=== PATIENT | male | born 2000 | race Caucasian/White ===

== ENCOUNTER 2025-08-16 18:14 | Inpatient (IN) | payer MEDICAID, OTHER, SELFPAY ==
--- NOTE | ~2025-08-16 | US_ITS ---
CLINICAL HISTORY: History of basilc and cephalic vein thrombosis Venous duplex ultrasound left upper extremity Comparison: None provided Findings: Accessible deep venous segments are fully compressible with normal Doppler color flow and spectral tracings. IMPRESSION: 1. Negative for left upper extremity deep vein thrombosis. This document has been electronically signed by: Tj Pryor MD on 08/18/2025 19:16:47
--- NOTE | ~2025-08-16 | XR_ITS ---
CLINICAL HISTORY: shoulder pain 3 views right shoulder Comparison: None Findings: There is a small fracture involving the greater tuberosity of the humerus. No other fracture or dislocation.. No significant arthritic change. No radiopaque foreign body. Normal visualized right chest. Impression: 1. Small fracture of the greater tuberosity of the humerus. No other fracture or dislocation. This document has been electronically signed by: Cruz Prasad MD on 08/16/2025 20:38:48
[2025-08-16 18:24] VITALS: BP 120/80; BP 155/82; PULSE 100; PULSE 140; RESP 22; TEMP 36.8; O2SAT 99; BMI 23.4
[2025-08-16 18:45] VITALS: RESP 14
--- NOTE | 2025-08-16 18:48 | PC.NURSE ---
Igor (they/them) presents to the ED today reporting suicidal ideation with a plan to jump in front of a train due to increasing life stressors. They report to this RN that they also struggle with substance abuse (specifically alcohol). Pt reports drink 2 liters of vodka daily and has a history of DTs. Pt reports last drink was earlier today. Upon arrival to the pod, pt is extremely tearful, on phone with friend, when tech brought patient into bathroom, pt attempted to take a hit off their vape . Vape was grabbed by tech Pattie, in the process of grabbing the vape, pts acrylic nail was accidentally knocked off of patient's hand. No injury noted by this RN. This RN then entered room to assist in changing patient with JOHN Blankenship. Pt changed over and visibly inspected by this RN during process. Pt was then escorted to their room and in the process of walking over to their room stated I feel faint . JOHN Blankenship and Officer Tash assisted patient to their bed. Pt endorses frequent dizzy spells, endorses lack of appetite. Pt also reports having a right arm fracture that was diagnosed at [facility] three weeks ago but never follow up on
--- NOTE | 2025-08-16 18:51 | MHC.EDTECH ---
This tech escorted patient to bathroom for changeover. Patient stated they needed to pee, I explained I needed to be present during changeover, but if they would like to change first I could step out and give them privacy to use the bathroom. Patient stated that I really just need to hit my vape one more time. I stated no, patient kept proceeding to say please over and over again. Patient pulled vape from pocket and attempted to use it. This tech pulled vape from patients hand/mouth and while taking vape pulled patients false nail off finger. Vape with security, and RN made aware to look at patients finger. RN assisted with the rest of changeover, which was uneventful.
--- NOTE | 2025-08-16 18:56 | MHC.EDTECH ---
Patient has surgically placed rings in ears that are unable to be removed. Also states surgically placed septum jewely which is unable to be removed. Additionally patient has two nostril rings, one lip ring and a penile ring. RN aware of all jewelry on body.
[2025-08-16 19:20] LABS: MANUAL DIFF FLAG NO
[2025-08-16 19:33] LABS: Alanine Aminotransferase 126 U/L (0-40); Albumin Level 4.0 g/dL (3.5-5.0); Alkaline Phosphatase 88 U/L (39-117); Anion Gap 19 (12-20); Aspartate Amino Transferase 137 U/L (5-37); Blood Urea Nitrogen 8 mg/dL (9-16); Calcium 8.2 mg/dL (8.4-10.2); Carbon Dioxide 19 mmol/L (22-29); Chloride 110 mmol/L (96-108); Creatinine Clr Calc Pharmacy 101.1; Estimated Glomerular Filt Rate > 60; Potassium 3.4 mmol/L (3.3-5.1); Sodium 145 mmol/L (135-145); Total Protein 6.2 g/dL (6.5-8.0)
--- NOTE | 2025-08-16 19:34 | ED_ITS ---
HPI - Psych General Chief Complaint: Psychiatric Symptoms Stated Complaint: SI, psychiatric/substance abuse issues, Time Seen by Provider: 08/16/25 19:18 History of Present Illness HPI Narrative: Patient is a 25-year-old person preferred pronoun the stay the presented today with having suicidal thoughts. Patient had thoughts about jumping onto the train track. They drank alcohol. Question using drugs. Denies any head injury. Question took an extra dose of Xarelto. Patient from home. No additional trauma Related Data Home Medications ?Medication ?Instructions ?Recorded ?Confirmed clonazepam 1 mg tablet 1 mg PO DAILY 08/16/2508/16 clonazepam 2 mg tablet 2 mg PO NEEDED PRN Anxiet y 08/16/25 08/16/25 finasteride 5 mg tablet 1.25 mg PO DAILY 08/16/25 minoxidil 2.5 mg tablet 1.25 mg PO DAILY 08/16/25 Allergies Allergy/AdvReac Type Severity Reaction Status Date / Time Opioids - Morphine Analogues Allergy Unknown Verified 08/16/25 18:43 Penicillins Allergy Unknown Verified 08/16/25 18:43 Review of Systems 2 Review of Systems: Positive suicidal ideation Yes all other systems are reviewed and are negative [facility], [facility] Past Medical History Attestation statement: The following information was validated with the patient. Social History Social History Alcohol intake: current Alcohol intake frequency: 3 or more drinks per day Smoked in Last 30 Days: Yes Use of substances other than those prescribed or required for medical reasons: No Advance Directives: No Advance Directives Information Provided: No Physical Exam 2 Exam: Exam: Appearance: Alert. Oriented X3. No acute distress. Eyes: Pupils equal, round and reactive to light. ENT: Pharynx normal. Neck: Normal inspection. Neck supple. No lymph nodes noted. No crepitus CVS: Normal heart rate and rhythm. Pulses normal. Normal S1 and S2 Respiratory: No respiratory distress. Breath sounds normal. No Wheezing. No rales Abdomen: Soft and nontender. No rigidity. No distention. good BS x4 Skin: Skin warm and dry. Normal skin color. Normal skin turgor. Extremities: No lower extremity edema. Neurovascular intact to all extremities. No Lacerations. No Rash Neuro: Oriented X 3. No motor deficit. No sensory deficit. Moving all extermities. No slurred speech. Cranial nerves grossly intact Vital Signs: Vital Signs: Last Vital Signs Temp 97.7 F 08/17/25 08:49 Pulse 70 08/17/25 08:49 Resp 20 08/17/25 08:49 BP 142/70 H 08/17/25 08:49 Pulse Ox 97 08/17/25 08:49 O2 Del Method Room Air 08/17/25 08:49 BMI result Body Mass Index 23.4 Course Reevaluation(s) Reevaluation #1: Time: 05:13 Date: 08/17/25 Provider: David Watt MD Patient in physician observation for psychiatric evaluation.? Laboratory evaluation revealed elevated AST and ALT consistent with his alcohol use disorder. Ethanol level was elevated at 249. Urine tox screen pending collection. No acute events reported overnight. No current complaints. VS stable.? Pending CARE team evaluation. Will continue to monitor. Medications Administered Generic Name Dose Route Start Last Admin Trade Name Freq PRN Reason Stop Dose Admin Clonazepam 1 mg 08/17/25 09:00 08/17/25 10:03 Clonazepam 1 Mg Tablet PO 1 mg DAILY CANDY Administration Nicotine Polacrilex 2 mg 08/16/25 21:46 08/17/25 10:03 Nicotine Polacrilex 2 Mg Gum BUCCAL 2 mg Q1H PRN Administration Nicotine Cravings Discontinued Medications Generic Name Dose Route Start Last Admin Trade Name Freq PRN Reason Stop Dose Admin Clonazepam 2 mg 08/17/25 08:18 08/17/25 08:24 Clonazepam 1 Mg Tablet PO 08/17/25 08:19 2 mg ONCE STA Administration Diphenhydramine HCl 50 mg 08/17/25 00:28 08/17/25 00:32 Diphenhydramine Hcl 25 Mg Capsule PO 08/17/25 00:29 50 mg ONCE ONE Administration Ondansetron HCl 4 mg 08/17/25 08:18 08/17/25 08:23 Ondansetron Odt 4 Mg Tab.Rapdis TRANSLINGU 08/17/25 08:19 4 mg ONCE STA Administration Medical Decision Making Medical Decision Making MDM Narrative: No acute distress positive pain to the right shoulder. Labs ordered crisis team consulted. Reports of alcohol use today. Lab Data 08/16/25 19:13 08/16/25 19:13 Labs: Lab Results 08/16/25 08/16/25 08/17/25 Range/Units 19:13 22:57 06:15 WBC 4.8 (4.8-10.8) X10*3/uL RBC 5.13 (4.60-5.80) X10*6/uL Hgb 14.8 (14.0-18.0) g/dl Hct 42.0 (42.0-52.0) % MCV 81.9 (80.0-98.0) fL MCH 28.8 (27.0-33.0) pg MCHC 35.2 (31.0-36.0) g/dl RDW 15.4 (11.0-16.0) % Plt Count 163 (160-400) X10*3/uL MPV 12.1 (9.4-12.4) fL Immature Gran % (Auto) 0.2 (0.0-0.4) % Neut % (Auto) 58.2 (45-73) % Lymph % (Auto) 36.0 (20-40) % [place] % (Auto) 4.6 (2-11) % Eos % (Auto) 0.4 (0-4) % Baso % (Auto) 0.6 (0-2) % Lymph # (Auto) 1.7 (1.2-4.9) X10*3/uL [place] # (Auto) 0.2 (0.1-1.2) X10*3/uL Eos # (Auto) 0.0 (0.0-0.4) X10*3/uL Baso # (Auto) 0.0 (0.0-0.2) X10*3/uL Abs Immat Gran (auto) 0.01 (0.00-0.03) X10*3/uL Absolute Neuts (auto) 2.8 (2.0-8.3) x10*3/uL Absolute Nucleated RBC 0.000 (0.0-0.012) X10*3/uL Nucleated RBC % (auto) 0.0 (0.0-0.2) /100WBC PT 10.4 L (11.2-13.5) SEC INR 0.8 L (0.9-1.1) Sodium 145 (135-145) mmol/L Potassium 3.4 (3.3-5.1) mmol/L Chloride 110 H (96-108) mmol/L Carbon Dioxide 19 L (22-29) mmol/L Anion Gap 19 (12-20) BUN 8 L (9-16) mg/dL Creatinine 0.99 (0.5-1.4) mg/dL Estim Creat Clear Calc 101.1 Estimated GFR > 60 Random Glucose 139 H (60-115) mg/dL Calcium 8.2 L (8.4-10.2) mg/dL Total Bilirubin 0.5 (0.0-1.0) mg/dL AST 137 H (5-37) U/L ALT 126 H (0-40) U/L Alkaline Phosphatase 88 (39-117) U/L Total Protein 6.2 L (6.5-8.0) g/dL Albumin 4.0 (3.5-5.0) g/dL Urine Color Yellow Urine Appearance Clear Urine pH 6.5 (5.0-9.0) Ur Specific [place] 1.025 (1.005-1.025) Urine Protein Trace (Neg-Trace) mg/dL Urine Glucose (UA) Negative (Negative) mg/dL Urine Ketones Trace (Negative) mg/dL Urine Blood Negative (Negative) Urine Nitrite Negative (Negative) Ur Leukocyte Esterase Moderate (2+) H (Negative) Urine RBC 3-5 H (0-2) /HPF Urine WBC 6-10 (0-5) /HPF Ur Squamous Epith Cells 0-2 (0-2) /HPF Urine Bacteria None Seen (None Seen) Hyaline Casts 0-2 (0-2) /LPF Salicylates < 5.0 L (15-30) mg/dL Urine Opiates Screen Not Detected (Not Detect) Ur Buprenorphine Scrn Not Detected (Not Detect) ng/mL Ur Oxycodone Screen Not Detected (Not Detect) ng/mL Urine Methadone Screen Not Detected (Not Detect) ng/mL Urine Fentanyl Screen Not Detected (Not Detect) Acetaminophen < 3 (<30) mcg/mL Ur Barbiturates Screen POSITIVE H (Not Detect) Ur Phencyclidine Scrn Not Detected (Not Detect) Ur Amphetamines Screen Not Detected (Not Detect) U Benzodiazepines Scrn Not Detected (Not Detect) Urine Cocaine Screen Not Detected (Not Detect) U Marijuana (THC) Screen Not Detected (Not Detect) Ethyl Alcohol 294 mg/dL Discharge Plan Discharge Prescriptions: No Action clonazepam 1 mg Tablet 1 mg PO DAILY minoxidil 2.5 mg tablet 1.25 mg PO DAILY clonazepam 2 mg Tablet 2 mg PO NEEDED PRN (Reason: Anxiety) finasteride 5 mg tablet 1.25 mg PO DAILY Interventions: [place]-Suicide Risk Severity Scale Last Done: 08/16/25 18:46 Print Language: Greenlandic
[2025-08-16 20:17] LABS: Hematocrit 42.0 % (42.0-52.0); Hemoglobin 14.8 g/dl (14.0-18.0); Imm Gran Abs Auto 0.01 X10*3/uL (0.00-0.03); Imm Gran Pct Auto 0.2 % (0.0-0.4); Lymphocytes Absolute Auto 1.7 X10*3/uL (1.2-4.9); Mean Corpuscular HGB Conc 35.2 g/dl (31.0-36.0); Mean Corpuscular Hemoglobin 28.8 pg (27.0-33.0); Mean Corpuscular Volume 81.9 fL (80.0-98.0); NRBC Abs Auto 0.000 X10*3/uL (0.0-0.012); NRBC Pct Auto 0.0 /100WBC (0.0-0.2); Platelet Count 163 X10*3/uL (160-400); Red Blood Count 5.13 X10*6/uL (4.60-5.80); White Blood Count 4.8 X10*3/uL (4.8-10.8)
[2025-08-16 20:34] VITALS: BP 116/69; PULSE 92; RESP 18; TEMP 37.1; O2SAT 98
--- NOTE | 2025-08-16 22:53 | PC.NURSE ---
Assumed care at 1845. Presents with labile mood, alternating between crying and laughing. Told t/w Can you please make sure they don't discharge me tomorrow morning. I'll go back to the liquor store. I want to see a gymnastics coach. No HS scheduled medications. Utilized Nicorette gum x2. C/o pain to R shoulder and reports they suffered a fracture 3 weeks ago, but did not seek follow-up care. Abdullahi made aware, order for R Shoulder XRAY obtained. Reports they drink 2L of vodka daily (last this AM) and hx of WD SZ/DT's. Last CIWA score of 5, Abdullahi made aware. Endorses +SI no plan. Denies HI/AVH. Agreeable to alert staff if feeling unsafe. No c/o dizziness. Requesting large amounts of icewater. UA collection attempted/requested multiple times, will retry in AM. Med req completed per patient information. 15 minute safety checks ongoing. Plan of care ongoing...
[2025-08-17 00:17] VITALS: BP 136/78; PULSE 64; RESP 16; TEMP 37.1; O2SAT 98
--- NOTE | 2025-08-17 00:39 | PC.NURSE ---
Igor approached nurses station asking for food/water, reports he hasn't eaten in days. Provided cold water/sandwiches. Utilized PRN Nicorette gum. Igor requested a medication for Alcohol Withdrawal and stated Ativan does not work and I love benzos. I want Phenobarbital, it's the only thing that works. VS WNL. CIWA score of 6. MD Lozano made aware of patient concern/status, order for 50mg PO Benadryl obtained/administered. Mouth checks completed. Will continue to monitor for safety/WD sx.
[2025-08-17 06:00] VITALS: BP 148/79; PULSE 60; RESP 17; TEMP 36.7; O2SAT 99
[2025-08-17 06:22] LABS: Appearance Urine Clear; Glucose Urine UA Negative (Negative); PH 6.5 (5.0-9.0); Specific Gravity - Urine 1.025 (1.005-1.025); UMIC TRIGGER UACC YES
[2025-08-17 06:29] LABS: UACC Culture Trigger YES
[2025-08-17 06:32] LABS: Cannabinoid Screen Urine Not Detected (Not Detect)
--- NOTE | 2025-08-17 07:16 | PC.NURSE ---
Assumed care, report received. Pt is currently sleeping, breakfast is provided.
[2025-08-17 08:49] VITALS: BP 142/70; PULSE 70; RESP 20; TEMP 36.5; O2SAT 97
--- NOTE | 2025-08-17 08:53 | MHC.CARE ---
Pt will be a dual dx bedsearch, if we cannot find a timely placement for them on a dual unit it has been recommended that we take them here and have [facility].
--- NOTE | 2025-08-17 09:45 | PC.NURSE ---
Pt woke with significant nausea. tremors, weakness and AH. CIWA-18 he was medicated and is currently sleeping. HR-70 BP 147/70
--- NOTE | 2025-08-17 10:30 | PHA.MEDREC ---
Pharmacy Consult ? Medication Reconciliation Pharmacy has completed the medication reconciliation. Med rec completed by nursing who spoke to patient. Reviewed by pharmacy
[2025-08-17 15:50] VITALS: BMI 26.2
[2025-08-17] MEDS: Nicotine Polacrilex Lozenge 4 MG LOZENGE BUCCAL ×4 (16:05→21:57)
--- NOTE | 2025-08-17 17:46 | PC.ADMIT ---
Addendum entered by Macy Otero RN 08/17/25 17:49: Pt signed a 3 day notice shortly after arrival to the unit. Accepting of NRT (lozenges and patch) as they vape nicotine daily. Of note per ED nurse report, vape found on pt and confiscated. They decline lease attendant visit, declines Flu vaccine, and is requesting a visit from Addiction medicine/seeking a assistant track coach. Original Note: Pt arrived from the pod at 1450 with admitting dx of SI/Alcohol withdrawal. Igor uses they/them pronouns and identifies as non binary. They signed a CV with Dr Horton in the ED.They are unknown to the CARE team but report multiple psych admissions and . Pt is chronically homeless and recently was [facility] from [facility]. They have been having increasing depression due to ongoing substance abuse, recent heroin relapse, and homelessness. Per CARE team notes they recently were at [facility] for 3 weeks for a blood infection and fractured right arm. Igor has a hx of trauma, depression, SIB, SA by overdose in the past, substance use disorder with? hx of alcohol withdrawal seizures- admits to drinking 2 liters of vodka daily. In ED urine tox positive for barbiturates and BAL 294. They report being at [facility] detox program for 5 days in January and were recently at [facility] for detox. They appeared disheveled and unkept, skin check significant for superficial lacerations to right arm and limited ROM to RUE due to humerus fx. They signed a CV with Dr Horton, placed on 15 min safety checks, admission paperwork completed and SAMMY signed. They denied SI/HI/AVH and reported high anxiety/agitation. Igor was visibly tremulous, diaphoretic, and highly anxious upon arrival to . They scored 22 on CIWA and were medicated with Ativan 2 mg po and then obtained order for phenobarbital taper and started? with Phenobarbital 60 mg. They continued to ask for prn klonopin for anxiety and reported that they ?have a very high tolerance to everything? and went on to state that at detox they gave them 700 mg of phenobarbital. Igor was much more comfortable and less tremulous, anxious and ate a snack and had dinner, reporting a good appetite. Igor was? placed on 15 min safety checks, on CIWA q4 hrs ,admission paperwork completed and SAMMY signed.Social with select peers and reported that ?they cannot be alone with men.? They are currently rooming with a patient who was born female but identifies as they/them. They were oriented to the unit and belongings inventoried.?
[2025-08-17 20:00] VITALS: BP 140/90; PULSE 69; RESP 16; TEMP 36; O2SAT 96
[2025-08-18] MEDS: Nicotine Polacrilex Lozenge 4 MG LOZENGE BUCCAL ×8 (00:08→22:53)
--- NOTE | 2025-08-18 01:47 | PC.NURSE ---
Patient signed a 3 day notice 08/17/25, up on , 08/21/25. Erika Moses notified.
[2025-08-18 08:00] VITALS: BP 137/89; PULSE 68; RESP 20; TEMP 36.3; O2SAT 98
[2025-08-18 08:46] VITALS: BP 137/89; PULSE 68; RESP 20; TEMP 36.3; O2SAT 98
[2025-08-18] MEDS: Nicotine 21 MG PATCH.TD24 TRANSDERMA (08:50)
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
[2025-08-18 12:52] VITALS: BP 155/93; PULSE 93; O2SAT 98
--- NOTE | 2025-08-18 14:21 | MHC.RECOVRN ---
Addendum entered by Ashley Carrion RN 08/18/25 14:24: Pt's withdrawals are being treated with phenobarbital. Original Note: Attempted to meet w/ pt ~13:00 - pt requested that this RN comes back later. Pt at the time was severely anxious and a little tremulous. Pt is on CIWA protocol. Will attempt to meet with pt again shortly.
[2025-08-18] MEDS: PHENobarbitaL sodium 130 MG/ML IM ONCE 204 MG IM (15:26)
--- NOTE | 2025-08-18 16:32 | HO.PM.IMCN ---
History of Present Illness Data of Consult Service Date: 08/18/25 Primary Care Provider: Unknown Physician HPI Reason for consult: Medical H&P 25-year-old male who uses they them pronouns with a past medical history of general anxiety disorder, bacteremia due to Staph aureus, superficial thrombophlebitis of his arm, heavy alcohol use disorder, fracture of the right humerus, thrombocytopenia, history of DTs presented to the emergency department here at [facility]. Patient was recently discharged from [facility] with delirium tremens, superficial venous thrombosis in MSSA bacteremia. Patient was diagnosed with a left upper extremity basilic and cephalic vein thrombosis and was discharged with rivaroxaban 10 mg at supper for 42 days and did not take this upon discharge. Patient also diagnosed with bacteremia, they received 2 g of cefazolin for 14 days and then was scheduled to complete 1 g of cephalexin every 6 hours for 15 more days with a follow up with ID. Patient also noted to have a fracture of right humerus that was sustained in a fall. Not wearing a sling because they report that it is uncomfortable. Patient with a history of thrombocytopenia, cyanocobalamin ordered p.o. methylmalonic acid level elevated. On exam they gave her clear picture of recent hospitalization. Reports that they do not feel well vague and nonspecific. Eating chips, no nausea or vomiting. No tachycardia. No hypoxia. Prior to presentation to the ER patient has been staying at [facility] medical respite due to blood infection and fractured arm. On exam reports that they do not feel well vague and nonspecific. Tremor noted Review of Systems Review of Systems: Denies any shortness of breath, chest pain, palpitations, dizziness, lightheadedness, headaches, dysuria, abdominal pain or discomfort, nausea, vomiting or diarrhea. Denies chills, body aches, muscle aches, fatigue or weight loss. [facility] Social History Household Members: None Housing: Homeless Do you presently have visiting nurse or other home services: No Alcohol intake: current Alcohol intake frequency: 3 or more drinks per day Patient Tobacco Use Status: Current everyday Tobacco user Tobacco use type: Smokeless Tobacco Smoked in Last 30 Days: Yes e-Cigarette/Vaping Use: Currently Using Frequency of e-Cigarette/Vaping Use: all day everyday Patient Interested in Nicotine Replacement: Yes Patient Given Instructions on How to Stop Smoking: No Second Hand Smoke Exposure: No Use of substances other than those prescribed or required for medical reasons: No Currently Displaying Signs/Symptoms of Drug Intoxication Withdrawal: No Do you feel safe in your current relationship?: No Current Relationship Is there a partner from a previous relationship who is making you feel unsafe now?: No Are you made to feel afraid or neglected: No Spiritual Healthcare Practices: none Yarsanism Healthcare Practices: none Cultural Healthcare Practices: none Advance Directives: No Advance Directives Information Provided: No Do you have thoughts of harming others: None Do you have a plan to hurt others: No Plan Recently lost weight without trying: Unsure How much weight loss: Unsure Nutrition Risks: No Nutritional Risk Meds Allergies Allergy/AdvReac Type Severity Reaction Status Date / Time Opioids - Morphine Analogues Allergy Unknown Verified 08/16/25 18:43 Penicillins Allergy Unknown Verified 08/16/25 18:43 Active Medications: Current Medications Acetaminophen (Acetaminophen 325 Mg Tablet) 650 mg PO Q6H PRN PRN Reason: Headache/Pain, Scale 1-10 Al Hydroxide/Mg Hydroxide (Magnesium Hydrox/Alum Hydrox 30 Ml Oral.Susp) 30 ml PO Q6H PRN PRN Reason: Heartburn/Nausea Clonazepam (Clonazepam 1 Mg Tablet) 2 mg PO Q4H PRN PRN Reason: Anxiety, agitation Last Admin: 08/18/25 11:06 Dose: 2 mg Clonazepam (Clonazepam 1 Mg Tablet) 2 mg PO DAILY COUNT INCLUDES THE [facility] Clonazepam (Clonazepam 1 Mg Tablet) 1 mg PO DAILY PRN PRN Reason: severe anxiety Famotidine (Famotidine 20 Mg Tablet) 20 mg PO BID COUNT INCLUDES THE [facility] Last Admin: 08/18/25 12:54 Dose: 20 mg Finasteride (Finasteride 5 Mg Tablet) 1.25 mg PO DAILY COUNT INCLUDES THE [facility] Last Admin: 08/18/25 08:44 Dose: 1.25 mg Hydroxyzine HCl (Hydroxyzine Hcl 25 Mg Tablet) 25 mg PO Q6H PRN PRN Reason: mild anxiety Last Admin: 08/18/25 02:23 Dose: 25 mg Magnesium Hydroxide (Milk Of Magnesia 30 Ml Oral.Susp) 30 ml PO DAILY PRN PRN Reason: Constipation Minoxidil (Minoxidil 2.5 Mg Tablet) 1.25 mg PO DAILY COUNT INCLUDES THE [facility] Last Admin: 08/18/25 08:42 Dose: 1.25 mg Nicotine (Nicotine 21 Mg Patch.Td24) 21 mg TRANSDERMA DAILY PRN PRN Reason: nicotine craving Last Admin: 08/18/25 08:50 Dose: 21 mg Nicotine Polacrilex (Nicotine Polacrilex Lozenge 4 Mg Lozenge) 4 mg BUCCAL Q2H PRN PRN Reason: Nicotine Cravings Last Admin: 08/18/25 13:57 Dose: 4 mg Ondansetron HCl (Ondansetron Odt 4 Mg Tab.Rapdis) 4 mg TRANSLINGU Q6H PRN PRN Reason: Nausea and Vomiting Last Admin: 08/18/25 08:55 Dose: 4 mg Pharmacy Consult (Consult Rx Etoh Phenob Im/Po) 1 each MISCELLANE ONCE PRN; Protocol PRN Reason: Consult order Phenobarbital (Phenobarbital 15 Mg Tablet) 45 mg PO BID COUNT INCLUDES THE [facility] Stop: 08/20/25 21:01 Phenobarbital (Phenobarbital 30 Mg Tablet) 30 mg PO BID CANDY Stop: 08/22/25 21:01 Phenobarbital (Phenobarbital 30 Mg Tablet) 30 mg PO DAILY CANDY; Protocol Stop: 08/24/25 09:01 Phenobarbital Sodium (Phenobarbital Sodium 130 Mg/Ml Vial Im Q3hx2) 153 mg IM Q3H CANDY Stop: 08/18/25 20:31 Thiamine HCl (Thiamine Hcl 100 Mg Tablet) 200 mg PO DAILY CANDY Trazodone HCl (Trazodone Hcl 50 Mg Tablet) 50 mg PO BEDTIME MRX1 PRN PRN Reason: Insomnia Last Admin: 08/18/25 02:23 Dose: 50 mg Home Medications ?Medication ?Instructions ?Recorded ?Confirmed ?Last Taken ?Type clonazepam 1 mg tablet 1 mg PO DAILY 08/16/25 08/16/25 08/15/25 History clonazepam 2 mg tablet 2 mg PO NEEDED PRN Anxiety 08/16/25 08/16/25 08/15/25 History finasteride 5 mg tablet 1.25 mg PO DAILY 08/16/25 08/16/25 Unknown History minoxidil 2.5 mg tablet 1.25 mg PO DAILY 08/16/25 08/16/25 Unknown History Physical Exam Vital Signs and Narrative: Vital Signs: Last Vital Signs Temp 97.4 F 08/18/25 08:46 Pulse 93 08/18/25 12:52 Resp 20 08/18/25 08:46 BP 155/93 H 08/18/25 12:52 Pulse Ox 98 08/18/25 12:52 O2 Del Method Room Air 08/18/25 12:52 BMI result Body Mass Index 26.2 Alert and oriented X3, calm and cooperative. Answers questions. Neuro: CN II-X11 intact, no deficits, visual acuity intact EYES: PERRLA, EOM intact ENT: Hearing intact, MMM Cardiac: S1 S2 RRR, No ectopy Pulmonary: Lungs clear to auscultation, No increased WOB. Abdominal: BS active in all 4 quadrants, no guarding or tenderness MSK: Strength 5/5 upper and lower extremities. Guarding right arm. Positive pulses, color within normal limits : Deferred Extremities: No edema in lower extremities Psych: Quiet and cooperative. Anxious Skin: Warm and dry, Intact. Multiple scratch peñaloza to right arm, some new. No evidence of infection. Several old healed areas of self-injury up and down right forearm. Results Labs 08/16/25 19:13 08/16/25 19:13 Assessment and Plan (1) Suicidal ideation: Status: Acute Plan 25-year-old male who uses day them pronouns presented to our ED intoxicated and endorsing suicidal ideation to with the plan to leave in front of a train. Patient is now admitted for further stabilization. Generalized anxiety disorder/Heavy alcohol use disorder with history of DTs/substance use disorder/self-injurious behavior Treatment per psych team Patient started on phenobarbital protocol for withdrawal symptoms. Bacteremia due to Staph aureus Discharged on oral cephalexin. Patient reports they did not complete this Reviewed labs, no leukocytosis no anemia. Left upper extremity basilic and cephalic vein thrombosis Was discharged on rivaroxaban, has not taken Repeat ultrasound the left upper extremity No notable swelling, no pain Heavy alcohol use disorder Continue thiamine B12 and folate Elevated methylmalonic acid We will check B12 level, homocystine level Fracture of the right humerus Sustained sometime in June Patient with a noted fracture of the greater tuberosity of the humerus Not wearing a sling due to this being uncomfortable Patient reports they have not followed up with Orthopedics Consider orthopedic follow up Thank you for allowing me to participate in the care of this patient. Will follow with you, please notify medical provider with any changes in condition or concerns.
[2025-08-18] MEDS: PHENobarbitaL sodium 130 MG/ML VIAL IM Q3Hx2 153 MG IM ×2 (17:49→20:52)
[2025-08-18 18:52] VITALS: BP 139/86; PULSE 93; RESP 18; O2SAT 97
[2025-08-18 20:00] VITALS: BP 135/72; PULSE 78; TEMP 36.9; O2SAT 95
[2025-08-19] VITALS: BP 117/74; PULSE 82; RESP 16; TEMP 37.5; O2SAT 97
[2025-08-19 05:55] VITALS: BP 126/76; PULSE 84; TEMP 36.7; O2SAT 94
[2025-08-19] MEDS: Nicotine Polacrilex Lozenge 4 MG LOZENGE BUCCAL ×6 (07:47→22:18)
[2025-08-19 08:00] VITALS: BP 139/83; PULSE 80; RESP 18; TEMP 36.2; O2SAT 100
--- NOTE | 2025-08-19 08:23 | HO.PM.IMPN ---
Subjective Subjective Date of Service: 08/19/25 Interval History: Follow up withdrawal symptoms, patient was seen and examined, lying in bed. Respiratory rate even and regular, no tremors noted. When patient was aroused they began perseveration regarding anxiety and clonazepam dosing. Psychiatry team following Reports that the tremors are improved, withdrawal symptoms were also improved. On exam they deny any shortness of breath, chest pain or any other symptoms. Nursing denies any current concerns. Review of Systems Denies shortness of breath, dizziness, headache, chest pain. Physical Exam Exam: Exam: Alert and oriented X3, Appears sedate. Easily arousable. Neuro: CN II-X11 intact, no deficits, visual acuity intact EYES: PERRLA, EOM intact ENT: Hearing intact, MMM Cardiac: S1 S2 RRR, No ectopy Pulmonary: Lungs clear to auscultation, No increased WOB. Abdominal: BS active in all 4 quadrants, no guarding or tenderness MSK: Strength 5/5 upper and lower extremities. Guarding right arm. Positive pulses, color within normal limits : Deferred Extremities: No edema in lower extremities Psych: Quiet and cooperative. Anxious Skin: Warm and dry, Intact. Multiple scratch peñaloza to right arm, some new. No evidence of infection. Several old healed areas of self-injury up and down right forearm. Vital Signs: Vital Signs: Last Vital Signs Temp 98.1 F 08/19/25 05:55 Pulse 84 08/19/25 05:55 Resp 16 08/19/25 00:00 BP 126/76 08/19/25 05:55 Pulse Ox 94 08/19/25 05:55 O2 Del Method Room Air 08/19/25 05:55 BMI result Body Mass Index 26.2 Objective Data Active Medications Acetaminophen (Acetaminophen 325 Mg Tablet) 650 mg PO Q6H PRN PRN Reason: Headache/Pain, Scale 1-10 Last Admin: 08/18/25 18:00 Dose: 650 mg Documented By: ALLEN Al Hydroxide/Mg Hydroxide (Magnesium Hydrox/Alum Hydrox 30 Ml Oral.Susp) 30 ml PO Q6H PRN PRN Reason: Heartburn/Nausea Clonazepam (Clonazepam 1 Mg Tablet) 2 mg PO Q4H PRN PRN Reason: Anxiety, agitation Last Admin: 08/19/25 05:42 Dose: 2 mg Documented By: BAIRON Clonazepam (Clonazepam 1 Mg Tablet) 2 mg PO DAILY [facility] Clonazepam (Clonazepam 1 Mg Tablet) 1 mg PO DAILY PRN PRN Reason: severe anxiety Last Admin: 08/18/25 18:00 Dose: 1 mg Documented By: ALLEN Cyanocobalamin (Cyanocobalamin (Vitamin B-12) 1,000 Mcg Tablet) 1,000 mcg PO DAILY [facility] Famotidine (Famotidine 20 Mg Tablet) 20 mg PO BID [facility] Last Admin: 08/18/25 21:11 Dose: 20 mg Documented By: BAIRON Finasteride (Finasteride 5 Mg Tablet) 1.25 mg PO DAILY [facility] Last Admin: 08/18/25 08:44 Dose: 1.25 mg Documented By: ALLEN Folic Acid (Folic Acid 1 Mg Tablet) 1 mg PO DAILY [facility] Hydroxyzine HCl (Hydroxyzine Hcl 25 Mg Tablet) 25 mg PO Q6H PRN PRN Reason: mild anxiety Last Admin: 08/18/25 18:54 Dose: 25 mg Documented By: ALLEN Magnesium Hydroxide (Milk Of Magnesia 30 Ml Oral.Susp) 30 ml PO DAILY PRN PRN Reason: Constipation Minoxidil (Minoxidil 2.5 Mg Tablet) 1.25 mg PO DAILY [facility] Last Admin: 08/18/25 08:42 Dose: 1.25 mg Documented By: ALLEN Nicotine (Nicotine 21 Mg Patch.Td24) 21 mg TRANSDERMA DAILY PRN PRN Reason: nicotine craving Last Admin: 08/18/25 08:50 Dose: 21 mg Documented By: ALLEN Nicotine Polacrilex (Nicotine Polacrilex Lozenge 4 Mg Lozenge) 4 mg BUCCAL Q2H PRN PRN Reason: Nicotine Cravings Last Admin: 08/19/25 07:47 Dose: 4 mg Documented By: ALLEN Ondansetron HCl (Ondansetron Odt 4 Mg Tab.Rapdis) 4 mg TRANSLINGU Q6H PRN PRN Reason: Nausea and Vomiting Last Admin: 08/18/25 08:55 Dose: 4 mg Documented By: ALLEN Pharmacy Consult (Consult Rx Etoh Phenob Im/Po) 1 each MISCELLANE ONCE PRN; Protocol PRN Reason: Consult order Phenobarbital (Phenobarbital 15 Mg Tablet) 45 mg PO BID [facility] Stop: 08/20/25 21:01 Phenobarbital (Phenobarbital 30 Mg Tablet) 30 mg PO BID [facility] Stop: 08/22/25 21:01 Phenobarbital (Phenobarbital 30 Mg Tablet) 30 mg PO DAILY [facility]; Protocol Stop: 08/24/25 09:01 Thiamine HCl (Thiamine Hcl 100 Mg Tablet) 200 mg PO DAILY [facility] Trazodone HCl (Trazodone Hcl 50 Mg Tablet) 50 mg PO BEDTIME MRX1 PRN PRN Reason: Insomnia Last Admin: 08/18/25 22:04 Dose: 50 mg Documented By: BAIRON Labs 08/16/25 19:13 08/16/25 19:13 Microbiology Microbiology Results: Microbiology 08/17/25 06:15 Urine Culture - Final Urine clean catch - Clean Catch Midstream Assessment and Plan (1) Fracture of right humerus: Status: Acute Plan 25-year-old male who uses day them pronouns presented to our ED intoxicated and endorsing suicidal ideation to with the plan to leave in front of a train. Patient is now admitted for further stabilization. Generalized anxiety disorder/Heavy alcohol use disorder with history of DTs/substance use disorder/self-injurious behavior Treatment per psych team Patient started on phenobarbital protocol for withdrawal symptoms which are improved. Bacteremia due to Staph aureus Discharged on oral cephalexin. Patient reports they did not complete this Reviewed labs, no leukocytosis no anemia. Left upper extremity basilic and cephalic vein thrombosis-resolved- Was discharged on rivaroxaban- Did not take. Repeat ultrasound the left upper extremity was negative for any thrombosis No notable swelling, no pain. Heavy alcohol use disorder Continue thiamine B12 and folate Elevated methylmalonic acid per previous records We will check B12 level, homocystine level-Not drawn this morning. Fracture of the right humerus Sustained July 03 Patient with a noted fracture of the greater tuberosity of the humerus. Reviewed with Orthopedics- gentle range of motion Will need orthopedic follow up as an outpatient Thank you for allowing me to participate in the care of this patient. Will follow with you, please notify medical provider with any changes in condition or concerns. Quality Stroke Does the patient have a stroke diagnosis?: No VTE Prior VTE?: Yes VTE Risk Level:: Medical - low VTE Device Contraindication: Treatment Not Indicated VTE Drug Contraindication: Treatment Not Indicated
--- NOTE | 2025-08-19 09:21 | HO.PSYCHPN ---
Subjective Subjective Date of Service: 08/19/25 Reason For Visit: SI Interim History: Met with patient; discussed with team Patient overheard talking about fooling the nurses into getting extra clonazepam with tearfulness and exaggerating hand tremors. Patient asking commercial insurance underwriter for discharge saying that they will likely go out and drink alcohol but that is their choice. Hospice Executive Director discussed patient presented for SI and then patient said I was lying... I was never suicidal... I know what to say to get admitted but I was homeless and I just wanted a place to sleep at night... (it is commercial insurance underwriter's understanding that patient was at respite prior to this admission). Patient said he does not want to go to groups, finding them not helpful; patient refuses MAT or substance use programs instead wanting to work out sobriety on their own... And that they are not ready to stop drinking. After more discussion about patient's depression patient said perhaps they were willing to start an antidepressant medication and commercial insurance underwriter again reviewed Wellbutrin and venlafaxine. Patient said they would think about it Mental Status Exam Mental Status Exam Narrative: Pt is alert and oriented; behavior is organized in behavioral control, intermittently manipulative, calm; patient is not in distress; dressed in casual attire, tattoos, long fingernails, facial rings, unkempt; mood is described as I am fine and affect congruent, anxious; eye contact appropriate; Speech i normal rate, volume and prosody; no psychomotor agitation/retardation present; thought process is organized and goal directed; Thought content is on tx, discharge, psychosocial stressors; otherwise pertinent to relevant topics and without any delusional content, paranoid ideations or grandiosity; denies any SI/HI. Denies AVH and there is no evidence of perceptual disturbance. Patients insight and judgment fair and at baseline Diagnostics Vital Signs (24Hr): Vital Signs - 24 hr 08/18/25 12:52 08/18/25 18:52 08/18/25 20:00 Temperature 98.4 F Pulse Rate 93 93 78 Respiratory Rate 18 Blood Pressure 155/93 H 139/86 135/72 Pulse Oximetry 98 97 95 Oxygen Delivery Method Room Air Room Air Room Air 08/19/25 00:00 08/19/25 05:55 08/19/25 08:00 Temperature 99.5 F 98.1 F 97.1 F Pulse Rate 82 84 80 Respiratory Rate 16 18 Blood Pressure 117/74 126/76 139/83 Pulse Oximetry 97 94 100 Oxygen Delivery Method Room Air Room Air Room Air BMI result Body Mass Index 26.2 Labs 08/16/25 19:13 08/16/25 19:13 Medications Medications Current Medications Acetaminophen (Acetaminophen 325 Mg Tablet) 650 mg PO Q6H PRN PRN Reason: Headache/Pain, Scale 1-10 Last Admin: 08/18/25 18:00 Dose: 650 mg Al Hydroxide/Mg Hydroxide (Magnesium Hydrox/Alum Hydrox 30 Ml Oral.Susp) 30 ml PO Q6H PRN PRN Reason: Heartburn/Nausea Clonazepam (Clonazepam 1 Mg Tablet) 2 mg PO Q4H PRN PRN Reason: Anxiety, agitation Last Admin: 08/19/25 05:42 Dose: 2 mg Clonazepam (Clonazepam 1 Mg Tablet) 2 mg PO DAILY [facility] Last Admin: 08/19/25 08:18 Dose: 2 mg Clonazepam (Clonazepam 1 Mg Tablet) 1 mg PO DAILY PRN PRN Reason: severe anxiety Last Admin: 08/18/25 18:00 Dose: 1 mg Cyanocobalamin (Cyanocobalamin (Vitamin B-12) 1,000 Mcg Tablet) 1,000 mcg PO DAILY [facility] Last Admin: 08/19/25 08:18 Dose: 1,000 mcg Famotidine (Famotidine 20 Mg Tablet) 20 mg PO BID [facility] Last Admin: 08/19/25 08:18 Dose: 20 mg Finasteride (Finasteride 5 Mg Tablet) 1.25 mg PO DAILY [facility] Last Admin: 08/19/25 08:19 Dose: 1.25 mg Folic Acid (Folic Acid 1 Mg Tablet) 1 mg PO DAILY [facility] Last Admin: 08/19/25 08:17 Dose: 1 mg Hydroxyzine HCl (Hydroxyzine Hcl 25 Mg Tablet) 25 mg PO Q6H PRN PRN Reason: mild anxiety Last Admin: 08/19/25 08:25 Dose: 25 mg Magnesium Hydroxide (Milk Of Magnesia 30 Ml Oral.Susp) 30 ml PO DAILY PRN PRN Reason: Constipation Minoxidil (Minoxidil 2.5 Mg Tablet) 1.25 mg PO DAILY [facility] Last Admin: 08/19/25 08:18 Dose: 1.25 mg Nicotine (Nicotine 21 Mg Patch.Td24) 21 mg TRANSDERMA DAILY PRN PRN Reason: nicotine craving Last Admin: 08/18/25 08:50 Dose: 21 mg Nicotine Polacrilex (Nicotine Polacrilex Lozenge 4 Mg Lozenge) 4 mg BUCCAL Q2H PRN PRN Reason: Nicotine Cravings Last Admin: 08/19/25 07:47 Dose: 4 mg Ondansetron HCl (Ondansetron Odt 4 Mg Tab.Rapdis) 4 mg TRANSLINGU Q6H PRN PRN Reason: Nausea and Vomiting Last Admin: 08/18/25 08:55 Dose: 4 mg Pharmacy Consult (Consult Rx Etoh Phenob Im/Po) 1 each MISCELLANE ONCE PRN; Protocol PRN Reason: Consult order Phenobarbital (Phenobarbital 15 Mg Tablet) 45 mg PO BID [facility] Stop: 08/20/25 21:01 Last Admin: 08/19/25 08:17 Dose: 45 mg Phenobarbital (Phenobarbital 30 Mg Tablet) 30 mg PO BID [facility] Stop: 08/22/25 21:01 Phenobarbital (Phenobarbital 30 Mg Tablet) 30 mg PO DAILY [facility]; Protocol Stop: 08/24/25 09:01 Thiamine HCl (Thiamine Hcl 100 Mg Tablet) 200 mg PO DAILY [facility] Last Admin: 08/19/25 08:16 Dose: 200 mg Trazodone HCl (Trazodone Hcl 50 Mg Tablet) 50 mg PO BEDTIME MRX1 PRN PRN Reason: Insomnia Last Admin: 08/18/25 22:04 Dose: 50 mg Allergies Allergies Allergy/AdvReac Type Severity Reaction Status Date / Time Opioids - Morphine Analogues Allergy Unknown Verified 08/16/25 18:43 Penicillins Allergy Unknown Verified 08/16/25 18:43 Assessment & Plan Assessment & Plan (1) MDD (major depressive disorder), recurrent severe, without psychosis: Status: Acute Code(s): F33.2 - Major depressive disorder, recurrent severe without psychotic features (2) PTSD (post-traumatic stress disorder): Status: Acute Code(s): F43.10 - Post-traumatic stress disorder, unspecified (3) Alcohol dependence: Status: Acute Code(s): F10.20 - Alcohol dependence, uncomplicated (4) Alcohol withdrawal: Status: Acute Code(s): F10.939 - Alcohol use, unspecified with withdrawal, unspecified (5) Cocaine use disorder: Status: Acute Code(s): F14.10 - Cocaine abuse, uncomplicated (6) Opioid use disorder: Status: Acute Code(s): F11.90 - Opioid use, unspecified, uncomplicated (7) Homeless: Status: Acute Code(s): Z59.00 - Homelessness unspecified Plan HPI: Patient is a 25-year-old, non-binary (they/them) person (biologically male at ) with past medical history of MDD, PTSD, eating disorder, alcohol dependency, cocaine/heroin use disorder who presents for SI in the face of untreated depression, psychosocial stressors and ongoing severe alcoholism. They report ongoing depression and on going alcoholism, drinking a 0.5 gal of vodka a day. Patient reports they fractured their right Humeral head in June after falling down the stairs intoxicated; patient reports going to medical respite during which time had bacteremia and was started on antibiotics and developed a blood clot in the left arm and was started on Xarelto. Patient reports having stopped both medications, mid July,, feeling they did not need them. Patient has been staying at a respite since then, remaining very depressed and drinking daily, hiding the alcohol. They report this past week I was drinking so much, not eating...last week was bad, laying in bed, drinking vodka, not eating or drinking water.. Patient reports they felt suicidal in the sense I did not want to live like that anymore... And had some vague ideas on what they might do but no plan or intent. Patient called 911 asking for help, resulting in this admission. Patient denies history of manic episodes or behaviors; denies AVH. Initially reported to commercial insurance underwriter that they were sober from cocaine and heroin for the past 4 years however it was later found that patient relapsed on both cocaine and heroin this past June. Patient reports history of alcohol withdrawal seizures and delirium tremens. Formulation/clinical reasoning: Patient has longstanding depression that is untreated. Symptoms worsened by ongoing, severe alcohol abuse with intermittent cocaine opioid use. Patient is ambivalent about medications, anxious about weight gain; also ambivalent about substance use treatment. Patient says that SI was only in the context of intoxication and now that they are detoxing, SI is fully resolved. Patient ambivalent about receiving treatment for detox, not wanting to forego clonazepam medication. Patient reports they have been on clonazepam 2 mg daily with an extra 1 mg p.r.n. for several years and wants this continued during detox. Regarding withdrawal: Patient currently withdrawing from alcohol with history of DTs and withdrawal seizures; patient was initially put on both Ativan p.r.n. and clonazepam p.r.n. as well as started on phenobarbital 60 mg b.i.d.. Discussed with hospitalist and pharmacy and will switch to a formal phenobarbital protocol; will start with 7 milligrams/kilogram instead of a higher dose since patient has already received 180 mg of phenobarbital over 10 mg of benzos. Discussed case with nursing will continue CIWA to make sure that withdrawal symptoms are under control; if withdrawal symptoms worsen will transferred to the medical floor. Regarding clot: Patient does not seem to have a clotting disorder and left arm blood clot was due to midline being placed. Patient does not want to be on anticoagulant; stopped antibiotics early however currently afebrile WBC WNL; hospitalist will follow and make recommendations regarding Hospital course: 08/19 Patient overheard talking about fooling the nurses into getting extra clonazepam with tearfulness and exaggerating hand tremors. Patient asking commercial insurance underwriter for discharge saying that they will likely go out and drink alcohol but that is their choice. Hospice Executive Director discussed patient presented for SI and then patient said I was lying... I was never suicidal... I know what to say to get admitted but I was homeless and I just wanted a place to sleep at night... (it is commercial insurance underwriter's understanding that patient was at respite prior to this admission). Patient said he does not want to go to groups, finding them not helpful; patient refuses MAT or substance use programs instead wanting to work out sobriety on their own... And that they are not ready to stop drinking. After more discussion about patient's depression patient said perhaps they were willing to start an antidepressant medication and commercial insurance underwriter again reviewed Wellbutrin and venlafaxine. Patient said they would think about it -patient's withdrawal under control with CIWA scores adequately treated by phenobarbital -borderline treats emerging -patient continues to deny any SI; it is likely patient is getting close to or is already back to baseline. Hopefully patient will consider antidepressant medication Plan: Three day notice Q 15 minute checks Phenobarbital protocol Will continue clonazepam 2 mg daily with 1 mg p.r.n. as long as patient is not overly sedated Increase thiamine to 200 mg Patient considering medications Addiction consult place Patient educated on: diagnosis, medication risk/benefits, substance abuse and therapeutic strategies Informed Consent: understands Reason for continued inpatient stay Substantial Risk for: stable for discharge, rapid decompensation and med/psych decompensation Time Spent With Patient Time: Total time managing care of this patient today ____ minutes.
--- NOTE | 2025-08-19 11:01 | MHC.RECOVRN ---
Pt sleeping at this time. breathing wnl. Pt will be left to rest as appropriate for alcohol withdrawals. T/w will revisit pt shortly or before lunchtime.
--- NOTE | 2025-08-19 13:39 | PM.EVENT ---
Event Note Date of Service: 08/19/25 Event Note: Addiction Consult placed for patient OTIS Current acute alcohol withdrawal Chart reviewed --CIWA scores quite elevated on 08/18. Minimal response to benzodiazepines. Phenobarbital protocol initiated --CIWA scores much improved Attempted to meet with patient in AM, sleeping soundly. Opened eyes briefly to voice, then went back to sleep. veterinary radiologist can check in tomorrow to determine if patient would like to discuss recovery supports or resources Withdrawal being managed by attending provider. Time Spent With Patient Time: Total time managing care of this patient today ____ minutes.
[2025-08-19 20:00] VITALS: BP 141/92; PULSE 72; TEMP 35.5; O2SAT 98
[2025-08-20] MEDS: Nicotine Polacrilex Lozenge 4 MG LOZENGE BUCCAL ×6 (00:42→22:26)
[2025-08-20 08:00] VITALS: PULSE 98; TEMP 36.2; O2SAT 98
[2025-08-20 08:52] LABS: Alanine Aminotransferase 105 U/L (0-40); Albumin Level 4.2 g/dL (3.5-5.0); Alkaline Phosphatase 86 U/L (39-117); Anion Gap 12 (12-20); Aspartate Amino Transferase 72 U/L (5-37); Blood Urea Nitrogen 10 mg/dL (9-16); Calcium 9.1 mg/dL (8.4-10.2); Carbon Dioxide 25 mmol/L (22-29); Chloride 110 mmol/L (96-108); Cholesterol 167 mg/dL (<200); Creatinine Clr Calc Pharmacy 136.3; Estimated Glomerular Filt Rate > 60; HDL Cholesterol 66 mg/dL (>40); Potassium 3.8 mmol/L (3.3-5.1); Sodium 143 mmol/L (135-145); Total Protein 6.6 g/dL (6.5-8.0); Triglycerides 112 mg/dL (<150)
[2025-08-20 09:09] LABS: Free T4 (Free Thyroxine) 0.90 ng/dL (0.71-1.85); Thyroid Stimulating Hormone 3.18 uIU/mL (0.32-4.0)
[2025-08-20 09:17] LABS: Folate 10.3 ng/mL (> or = 4.0); Vitamin B12 494 pg/mL (200-900)
--- NOTE | 2025-08-20 10:05 | HO.PSYCHPN ---
Subjective Subjective Date of Service: 08/20/25 Reason For Visit: SI Interim History: met with patient; discussed with team After much ambivalence about what patient wanted to do, they concluded that they should remain on the unit, starting antidepressant medication and trying to pursue sobriety. Patient found out today that his aunt refuses to let him returned to live with her until he is been in treatment for a month. Patient denies any SI at all and says he does want to stop drinking. Litigation Support Analyst reviewed again risks/side effects of medications including venlafaxine and patient wanted to start today. Mental Status Exam Mental Status Exam Narrative: Pt is alert and oriented; behavior is organized in behavioral control, intermittently manipulative, calm; patient is not in distress; dressed in casual attire, tattoos, long fingernails, facial rings, unkempt; mood is described as anxious and affect congruent, anxious; eye contact appropriate; Speech i normal rate, volume and prosody; no psychomotor agitation/retardation present; thought process is organized and goal directed; Thought content is on tx, discharge, psychosocial stressors; otherwise pertinent to relevant topics and without any delusional content, paranoid ideations or grandiosity; denies any SI/HI. Denies AVH and there is no evidence of perceptual disturbance. Patients insight and judgment fair and at baseline Diagnostics Vital Signs (24Hr): Vital Signs - 24 hr 08/19/25 20:00 Temperature 95.9 F L Pulse Rate 72 Blood Pressure 141/92 H Pulse Oximetry 98 Oxygen Delivery Method Room Air BMI result Body Mass Index 26.2 Labs 08/16/25 19:13 08/20/25 08:17 Labs: Laboratory Results - last 48 hr 08/20/25 08:17 Sodium 143 Potassium 3.8 Chloride 110 H Carbon Dioxide 25 Anion Gap 12 BUN 10 Creatinine 0.84 Estim Creat Clear Calc 136.3 Estimated GFR > 60 Random Glucose 82 Estimat Average Glucose 91 Hemoglobin A1c % 4.8 Calcium 9.1 D Total Bilirubin 0.4 AST 72 H ALT 105 H Alkaline Phosphatase 86 Total Protein 6.6 Albumin 4.2 Triglycerides 112 Cholesterol 167 LDL Cholesterol, Calc 79 HDL Cholesterol 66 Vitamin B12 494 Folate 10.3 TSH 3.18 Free T4 0.90 Medications Medications Current Medications Acetaminophen (Acetaminophen 325 Mg Tablet) 650 mg PO Q6H PRN PRN Reason: Headache/Pain, Scale 1-10 Last Admin: 08/18/25 18:00 Dose: 650 mg Al Hydroxide/Mg Hydroxide (Magnesium Hydrox/Alum Hydrox 30 Ml Oral.Susp) 30 ml PO Q6H PRN PRN Reason: Heartburn/Nausea Clonazepam (Clonazepam 1 Mg Tablet) 2 mg PO DAILY [facility] [place] Last Admin: 08/20/25 08:30 Dose: 2 mg Clonazepam (Clonazepam 1 Mg Tablet) 1 mg PO DAILY PRN PRN Reason: severe anxiety Last Admin: 08/20/25 00:40 Dose: 1 mg Cyanocobalamin (Cyanocobalamin (Vitamin B-12) 1,000 Mcg Tablet) 1,000 mcg PO DAILY [facility] [place] Last Admin: 08/20/25 08:32 Dose: 1,000 mcg Diphenhydramine HCl (Diphenhydramine Hcl 25 Mg Capsule) 50 mg PO BEDTIME PRN PRN Reason: insomnia Last Admin: 08/19/25 20:23 Dose: 50 mg Famotidine (Famotidine 20 Mg Tablet) 20 mg PO BID [facility] [place] Last Admin: 08/20/25 08:32 Dose: Not Given Finasteride (Finasteride 5 Mg Tablet) 1.25 mg PO DAILY [facility] [place] Last Admin: 08/20/25 08:33 Dose: 1.25 mg Folic Acid (Folic Acid 1 Mg Tablet) 1 mg PO DAILY [facility] [place] Last Admin: 08/20/25 08:31 Dose: 1 mg Hydroxyzine HCl (Hydroxyzine Hcl 25 Mg Tablet) 25 mg PO Q6H PRN PRN Reason: mild anxiety Last Admin: 08/20/25 00:42 Dose: 25 mg Magnesium Hydroxide (Milk Of Magnesia 30 Ml Oral.Susp) 30 ml PO DAILY PRN PRN Reason: Constipation Minoxidil (Minoxidil 2.5 Mg Tablet) 1.25 mg PO DAILY [facility] [place] Last Admin: 08/20/25 08:30 Dose: 1.25 mg Nicotine (Nicotine 21 Mg Patch.Td24) 21 mg TRANSDERMA DAILY PRN PRN Reason: nicotine craving Last Admin: 08/18/25 08:50 Dose: 21 mg Nicotine Polacrilex (Nicotine Polacrilex Lozenge 4 Mg Lozenge) 4 mg BUCCAL Q2H PRN PRN Reason: Nicotine Cravings Last Admin: 08/20/25 08:31 Dose: 4 mg Ondansetron HCl (Ondansetron Odt 4 Mg Tab.Rapdis) 4 mg TRANSLINGU Q6H PRN PRN Reason: Nausea and Vomiting Last Admin: 08/18/25 08:55 Dose: 4 mg Pharmacy Consult (Consult Rx Etoh Phenob Im/Po) 1 each MISCELLANE ONCE PRN; Protocol PRN Reason: Consult order Phenobarbital (Phenobarbital 15 Mg Tablet) 45 mg PO BID [facility] [place] Stop: 08/20/25 21:01 Last Admin: 08/20/25 08:32 Dose: 45 mg Phenobarbital (Phenobarbital 30 Mg Tablet) 30 mg PO BID [facility] [place] Stop: 08/22/25 21:01 Phenobarbital (Phenobarbital 30 Mg Tablet) 30 mg PO DAILY [facility]; Protocol Stop: 08/24/25 09:01 Thiamine HCl (Thiamine Hcl 100 Mg Tablet) 200 mg PO DAILY [facility] [place] Last Admin: 08/20/25 08:32 Dose: 200 mg Trazodone HCl (Trazodone Hcl 100 Mg Tablet) 100 mg PO BEDTIME MRX1 PRN PRN Reason: Insomnia Last Admin: 08/19/25 22:17 Dose: 100 mg Allergies Allergies Allergy/AdvReac Type Severity Reaction Status Date / Time Opioids - Morphine Analogues Allergy Unknown Verified 08/16/25 18:43 Penicillins Allergy Unknown Verified 08/16/25 18:43 Assessment & Plan Assessment & Plan (1) MDD (major depressive disorder), recurrent severe, without psychosis: Status: Acute Code(s): F33.2 - Major depressive disorder, recurrent severe without psychotic features (2) PTSD (post-traumatic stress disorder): Status: Acute Code(s): F43.10 - Post-traumatic stress disorder, unspecified (3) Alcohol dependence: Status: Acute Code(s): F10.20 - Alcohol dependence, uncomplicated (4) Alcohol withdrawal: Status: Acute Code(s): F10.939 - Alcohol use, unspecified with withdrawal, unspecified (5) Cocaine use disorder: Status: Acute Code(s): F14.10 - Cocaine abuse, uncomplicated (6) Opioid use disorder: Status: Acute Code(s): F11.90 - Opioid use, unspecified, uncomplicated (7) Homeless: Status: Acute Code(s): Z59.00 - Homelessness unspecified Plan HPI: Patient is a 25-year-old, non-binary (they/them) person (biologically male at ) with past medical history of MDD, PTSD, eating disorder, alcohol dependency, cocaine/heroin use disorder who presents for SI in the face of untreated depression, psychosocial stressors and ongoing severe alcoholism. They report ongoing depression and on going alcoholism, drinking a 0.5 gal of vodka a day. Patient reports they fractured their right Humeral head in June after falling down the stairs intoxicated; patient reports going to medical respite during which time had bacteremia and was started on antibiotics and developed a blood clot in the left arm and was started on Xarelto. Patient reports having stopped both medications, mid July,, feeling they did not need them. Patient has been staying at a respite since then, remaining very depressed and drinking daily, hiding the alcohol. They report this past week I was drinking so much, not eating...last week was bad, laying in bed, drinking vodka, not eating or drinking water.. Patient reports they felt suicidal in the sense I did not want to live like that anymore... And had some vague ideas on what they might do but no plan or intent. Patient called 911 asking for help, resulting in this admission. Patient denies history of manic episodes or behaviors; denies AVH. Initially reported to underwriter solicitation director that they were sober from cocaine and heroin for the past 4 years however it was later found that patient relapsed on both cocaine and heroin this past June. Patient reports history of alcohol withdrawal seizures and delirium tremens. Formulation/clinical reasoning: Patient has longstanding depression that is untreated. Symptoms worsened by ongoing, severe alcohol abuse with intermittent cocaine opioid use. Patient is ambivalent about medications, anxious about weight gain; also ambivalent about substance use treatment. Patient says that SI was only in the context of intoxication and now that they are detoxing, SI is fully resolved. Patient ambivalent about receiving treatment for detox, not wanting to forego clonazepam medication. Patient reports they have been on clonazepam 2 mg daily with an extra 1 mg p.r.n. for several years and wants this continued during detox. Regarding withdrawal: Patient currently withdrawing from alcohol with history of DTs and withdrawal seizures; patient was initially put on both Ativan p.r.n. and clonazepam p.r.n. as well as started on phenobarbital 60 mg b.i.d.. Discussed with hospitalist and pharmacy and will switch to a formal phenobarbital protocol; will start with 7 milligrams/kilogram instead of a higher dose since patient has already received 180 mg of phenobarbital over 10 mg of benzos. Discussed case with nursing will continue CIWA to make sure that withdrawal symptoms are under control; if withdrawal symptoms worsen will transferred to the medical floor. Regarding clot: Patient does not seem to have a clotting disorder and left arm blood clot was due to midline being placed. Patient does not want to be on anticoagulant; stopped antibiotics early however currently afebrile WBC WNL; hospitalist will follow and make recommendations regarding Hospital course: 08/19 Patient overheard talking about fooling the nurses into getting extra clonazepam with tearfulness and exaggerating hand tremors. Patient asking underwriter solicitation director for discharge saying that they will likely go out and drink alcohol but that is their choice. Litigation Support Analyst discussed patient presented for SI and then patient said I was lying... I was never suicidal... I know what to say to get admitted but I was homeless and I just wanted a place to sleep at night... (it is underwriter solicitation director's understanding that patient was at respite prior to this admission). Patient said he does not want to go to groups, finding them not helpful; patient refuses MAT or substance use programs instead wanting to work out sobriety on their own... And that they are not ready to stop drinking. After more discussion about patient's depression patient said perhaps they were willing to start an antidepressant medication and underwriter solicitation director again reviewed Wellbutrin and venlafaxine. Patient said they would think about it -patient's withdrawal under control with CIWA scores adequately treated by phenobarbital -borderline treats emerging -patient continues to deny any SI; it is likely patient is getting close to or is already back to baseline. Hopefully patient will consider antidepressant medication 08/20 After much ambivalence about what patient wanted to do, they concluded that they should remain on the unit, starting antidepressant medication and trying to pursue sobriety. Patient found out today that his aunt refuses to let him returned to live with her until he is been in treatment for a month. Patient denies any SI at all and says he does want to stop drinking. Litigation Support Analyst reviewed again risks/side effects of medications including venlafaxine and patient wanted to start today. -team considered section 35 however patient is now wanting treatment Plan: Three day notice Q 15 minute checks Phenobarbital protocol Will continue clonazepam 2 mg daily with 1 mg p.r.n. as long as patient is not overly sedated Increase thiamine to 200 mg Patient considering medications Addiction consult place Patient educated on: diagnosis, medication risk/benefits, substance abuse and therapeutic strategies Informed Consent: understands and further education needed Reason for continued inpatient stay Substantial Risk for: rapid decompensation Time Spent With Patient Time: Total time managing care of this patient today ____ minutes.
[2025-08-20] MEDS: Venlafaxine HCl ER 37.5 MG CAP.ER.24H PO (15:06)
--- NOTE | 2025-08-20 16:53 | MHC.RECOVRN ---
Addiction consult received for alcohol use. TW met with pt on M5 in group room C . Pt was pleasant and engaged during interview, although anxious and tearful. Pt denies w/d symptoms at this time and is currently on a phenobarbital taper. Pt reports daily intake of 2L of Vodka for months as well as past cocaine and opiate use. Denies HX of overdose. Pt identifies unresolved childhood trauma and ongoing life stresses such as homelessness, lack of employment and supports as factors to continued alcohol use. Pt reports numerous ATS & CSS admissions as well as utilizing a power and recovery supervisor but feels it was not helpful. Pt also states they were taking Naltrexone for AUD for sometime but did not continue due to missing an appt. Pt reports they do not wish to restart Naltrexone at this time. Pt was able to identify having 2.5months abstinence with the help of AA and a sponsor but states his sponsor relapsed and numerous of his AA supports have also returned to use or , plus I get very anxious sitting through an entire meeting . Pt reports they do not wish to atttend a CSS unless there is specific placement for trans people as pt feels they have been treated poorly as well as traumatized by being placed with males although pt identifies as being female. Pt expressed desire for total abstinence from alcohol but is indecisive about the path they would like to take. Pt states if placement is not found they will have to return to the street as they're aunt will not let them move in unless they have 1 month abstinence and are taking psychiatric medication as prescribed. Pt was counseled on specific harm-reduction strategies including drinking below the recommended limit, setting a personal limit of no more than 1-2 drinks per occasion, alternating alcohol with water, pacing intake, and eating food prior to and during drinking.? Provided pt with written resources including information on inpatient and outpatient treatment, [facility], harm reduction, recovery coaching, pathways to recovery, as well as CSS facilities accepting transgender patients as requested by pt. Pt declines intervention, [facility], or outpatient appt for treatment related to AUD at this time. ACS team available as needed for ongoing support.
[2025-08-20 20:00] VITALS: BP 123/85; PULSE 87; RESP 18; TEMP 37; O2SAT 98
[2025-08-21 07:00] VITALS: BMI 27.2
[2025-08-21 08:00] VITALS: BP 123/79; PULSE 66; RESP 16; TEMP 36.4; O2SAT 97
[2025-08-21] MEDS: Venlafaxine HCl ER 37.5 MG CAP.ER.24H PO (08:46)
[2025-08-21] MEDS: Nicotine Polacrilex Lozenge 4 MG LOZENGE BUCCAL ×4 (08:54→17:49)
[2025-08-21] MEDS: Nicotine 21 MG PATCH.TD24 TRANSDERMA (09:27)
--- NOTE | 2025-08-21 09:56 | P.PNPSI_ITS ---
Subjective Subjective Date of Service: 08/21/25 Reason For Visit: SI Interim History: met with patient; discussed with team Patient found to have absconded it with a vape out of his backpack and hiding on his person. When confronted patient acknowledged it, pulled it out of pocked and gave it up (patient took it the day before). Patient then said they were lying about lying regarding his suicidality and that they worried if discharged patient might harm themselves (prior to today, patient consistently denied any SI, saying they fabricated SI just to get admitted and they were safe for discharge, planning to stay at their aunt's. Either last night or this morning patient learned they would not be allowed to stay at aunt's house post discharge...). Patient said that if they went to a CSS they think they would just leave early and harm themself; pt said they have left every CSS within a couple days. Patient has said numerous untruths during this admission, contradicting themself, changing the story based on the situation... Patient acknowledged this; when mortgage or loan underwriter asked how can anyone know when patient is telling the truth patient acknowledged I do not know.... Medical Underwriter discussed the correlation between being truthful and pursuing sobriety which patient acknowledged was likely true (on admission to the unit, patient very clearly said they had been sober from opiates and cocaine for years, giving specific dates and proud of upcoming anniversary; however, on admission, patient told ED staff they had relapsed recently with cocaine/heroin and when patient admitted to [facility] in June, acknowledged relapse at that time as well; to mortgage or loan underwriter the day before patient wanted to discharge and said they really liked AA and would go consistently if allowed to discharge, saying at one point they had been going consistently to AA meetings in [place]; however, the next day upon learning patient can not stay at his aunt's post discharge, patient said they had never been to AA more than once and left after a few minutes feeling uncomfortable; Patient overheard telling a peer that they manipulated nursing, exaggerating withdrawal symptoms to get extra benzos; patient told a nurse that if they did not get more benzos they would, in retaliation, start telling other patients that their medications are being tampered with, specifically to make other patients paranoid about medications...). Patient shared that due to history of trauma there is much anxiety about going to programs with men or having to have male roommates. But that they would be open to going to a program that was either all female or predominantly transgender patients. Patient said being on naltrexone had helped with sobriety in the past and wants to get back on it. Mental Status Exam Mental Status Exam Narrative: Pt is alert and oriented; behavior is organized in behavioral control, intermittently manipulative, calm; patient is not in distress; dressed in casual attire, tattoos, long fingernails, facial rings, unkempt; mood is described as anxious and affect congruent, anxious; eye contact appropriate; Speech is normal rate, volume and prosody; no psychomotor agitation/retardation present; thought process is organized and goal directed; Thought content is on tx, discharge, psychosocial stressors; otherwise pertinent to relevant topics and without any delusional content, paranoid ideations or grandiosity; expressions of SI situationally/agenda dependent/no HI. Denies AVH and there is no evidence of perceptual disturbance. Patients insight and judgment impaired but at baseline and adequate. Diagnostics Vital Signs (24Hr): Vital Signs - 24 hr 08/20/25 20:00 08/21/25 08:00 Temperature 98.6 F 97.6 F Pulse Rate 87 66 Respiratory Rate 18 16 Blood Pressure 123/85 123/79 Pulse Oximetry 98 97 Oxygen Delivery Method Room Air Room Air BMI result Body Mass Index 26.2 Labs 08/16/25 19:13 08/20/25 08:17 Labs: Laboratory Results - last 48 hr 08/20/25 08:17 Sodium 143 Potassium 3.8 Chloride 110 H Carbon Dioxide 25 Anion Gap 12 BUN 10 Creatinine 0.84 Estim Creat Clear Calc 136.3 Estimated GFR > 60 Random Glucose 82 Estimat Average Glucose 91 Hemoglobin A1c % 4.8 Calcium 9.1 D Total Bilirubin 0.4 AST 72 H ALT 105 H Alkaline Phosphatase 86 Total Protein 6.6 Albumin 4.2 Triglycerides 112 Cholesterol 167 LDL Cholesterol, Calc 79 HDL Cholesterol 66 Vitamin B12 494 Folate 10.3 TSH 3.18 Free T4 0.90 Medications Medications Current Medications Acetaminophen (Acetaminophen 325 Mg Tablet) 650 mg PO Q6H PRN PRN Reason: Headache/Pain, Scale 1-10 Last Admin: 08/18/25 18:00 Dose: 650 mg Al Hydroxide/Mg Hydroxide (Magnesium Hydrox/Alum Hydrox 30 Ml Oral.Susp) 30 ml PO Q6H PRN PRN Reason: Heartburn/Nausea Clonazepam (Clonazepam 1 Mg Tablet) 2 mg PO DAILY [facility] Last Admin: 08/21/25 08:46 Dose: 2 mg Clonazepam (Clonazepam 1 Mg Tablet) 1 mg PO DAILY PRN PRN Reason: severe anxiety Last Admin: 08/20/25 00:40 Dose: 1 mg Cyanocobalamin (Cyanocobalamin (Vitamin B-12) 1,000 Mcg Tablet) 1,000 mcg PO DAILY [facility] Last Admin: 08/21/25 08:46 Dose: 1,000 mcg Diphenhydramine HCl (Diphenhydramine Hcl 25 Mg Capsule) 50 mg PO BEDTIME PRN PRN Reason: insomnia Last Admin: 08/20/25 20:57 Dose: 50 mg Famotidine (Famotidine 20 Mg Tablet) 20 mg PO BID [facility] Last Admin: 08/21/25 08:49 Dose: Not Given Finasteride (Finasteride 5 Mg Tablet) 1.25 mg PO DAILY [facility] Last Admin: 08/21/25 08:47 Dose: 1.25 mg Folic Acid (Folic Acid 1 Mg Tablet) 1 mg PO DAILY [facility] Last Admin: 08/21/25 08:46 Dose: 1 mg Hydroxyzine HCl (Hydroxyzine Hcl 25 Mg Tablet) 25 mg PO Q6H PRN PRN Reason: mild anxiety Last Admin: 08/20/25 20:57 Dose: 25 mg Magnesium Hydroxide (Milk Of Magnesia 30 Ml Oral.Susp) 30 ml PO DAILY PRN PRN Reason: Constipation Minoxidil (Minoxidil 2.5 Mg Tablet) 1.25 mg PO DAILY [facility] Last Admin: 08/21/25 08:45 Dose: 1.25 mg Nicotine (Nicotine 21 Mg Patch.Td24) 21 mg TRANSDERMA DAILY PRN PRN Reason: nicotine craving Last Admin: 08/21/25 09:27 Dose: 21 mg Nicotine Polacrilex (Nicotine Polacrilex Lozenge 4 Mg Lozenge) 4 mg BUCCAL Q2H PRN PRN Reason: Nicotine Cravings Last Admin: 08/21/25 08:54 Dose: 4 mg Ondansetron HCl (Ondansetron Odt 4 Mg Tab.Rapdis) 4 mg TRANSLINGU Q6H PRN PRN Reason: Nausea and Vomiting Last Admin: 08/18/25 08:55 Dose: 4 mg Pharmacy Consult (Consult Rx Etoh Phenob Im/Po) 1 each MISCELLANE ONCE PRN; Protocol PRN Reason: Consult order Phenobarbital (Phenobarbital 30 Mg Tablet) 30 mg PO BID [facility] Stop: 08/22/25 21:01 Last Admin: 08/21/25 08:45 Dose: 30 mg Phenobarbital (Phenobarbital 30 Mg Tablet) 30 mg PO DAILY [facility]; Protocol Stop: 08/24/25 09:01 Thiamine HCl (Thiamine Hcl 100 Mg Tablet) 200 mg PO DAILY [facility] Last Admin: 08/21/25 08:46 Dose: 200 mg Trazodone HCl (Trazodone Hcl 100 Mg Tablet) 100 mg PO BEDTIME MRX1 PRN PRN Reason: Insomnia Last Admin: 08/20/25 22:26 Dose: 100 mg Venlafaxine HCl (Venlafaxine Hcl Er 37.5 Mg Cap.Er.24h) 37.5 mg PO DAILY [facility] Last Admin: 08/21/25 08:46 Dose: 37.5 mg Allergies Allergies Allergy/AdvReac Type Severity Reaction Status Date / Time Opioids - Morphine Analogues Allergy Unknown Verified 08/16/25 18:43 Penicillins Allergy Unknown Verified 08/16/25 18:43 Assessment & Plan Assessment & Plan (1) MDD (major depressive disorder), recurrent severe, without psychosis: Status: Acute Code(s): F33.2 - Major depressive disorder, recurrent severe without psychotic features (2) PTSD (post-traumatic stress disorder): Status: Acute Code(s): F43.10 - Post-traumatic stress disorder, unspecified (3) Alcohol dependence: Status: Acute Code(s): F10.20 - Alcohol dependence, uncomplicated (4) Alcohol withdrawal: Status: Acute Code(s): F10.939 - Alcohol use, unspecified with withdrawal, unspecified (5) Cocaine use disorder: Status: Acute Code(s): F14.10 - Cocaine abuse, uncomplicated (6) Opioid use disorder: Status: Acute Code(s): F11.90 - Opioid use, unspecified, uncomplicated (7) Homeless: Status: Acute Code(s): Z59.00 - Homelessness unspecified Plan HPI: Patient is a 25-year-old, non-binary (they/them) person (biologically male at ) with past medical history of MDD, PTSD, eating disorder, alcohol dependency, cocaine/heroin use disorder who presents for SI in the face of untreated depression, psychosocial stressors and ongoing severe alcoholism. They report ongoing depression and on going alcoholism, drinking a 0.5 gal of vodka a day. Patient reports they fractured their right Humeral head in June after falling down the stairs intoxicated; patient reports going to medical respite during which time had bacteremia and was started on antibiotics and developed a blood clot in the left arm and was started on Xarelto. Patient reports having stopped both medications, mid July,, feeling they did not need them. Patient has been staying at a respite since then, remaining very depressed and drinking daily, hiding the alcohol. They report this past week I was drinking so much, not eating...last week was bad, laying in bed, drinking vodka, not eating or drinking water.. Patient reports they felt suicidal in the sense I did not want to live like that anymore... And had some vague ideas on what they might do but no plan or intent. Patient called 911 asking for help, resulting in this admission. Patient denies history of manic episodes or behaviors; denies AVH. Initially reported to mortgage or loan underwriter that they were sober from cocaine and heroin for the past 4 years however it was later found that patient relapsed on both cocaine and heroin this past June. Patient reports history of alcohol withdrawal seizures and delirium tremens. Formulation/clinical reasoning: Patient has longstanding depression that is untreated. Symptoms worsened by ongoing, severe alcohol abuse with intermittent cocaine opioid use. Patient is ambivalent about medications, anxious about weight gain; also ambivalent about substance use treatment. Patient says that SI was only in the context of intoxication and now that they are detoxing, SI is fully resolved. Patient ambivalent about receiving treatment for detox, not wanting to forego clonazepam medication. Patient reports they have been on clonazepam 2 mg daily with an extra 1 mg p.r.n. for several years and wants this continued during detox. Regarding withdrawal: Patient currently withdrawing from alcohol with history of DTs and withdrawal seizures; patient was initially put on both Ativan p.r.n. and clonazepam p.r.n. as well as started on phenobarbital 60 mg b.i.d.. Discussed with hospitalist and pharmacy and will switch to a formal phenobarbital protocol; will start with 7 milligrams/kilogram instead of a higher dose since patient has already received 180 mg of phenobarbital over 10 mg of benzos. Discussed case with nursing will continue CIWA to make sure that withdrawal symptoms are under control; if withdrawal symptoms worsen will transferred to the medical floor. Regarding clot: Patient does not seem to have a clotting disorder and left arm blood clot was due to midline being placed. Patient does not want to be on anticoagulant; stopped antibiotics early however currently afebrile WBC WNL; hospitalist will follow and make recommendations regarding Hospital course: 08/19 Patient overheard talking about fooling the nurses into getting extra clonazepam with tearfulness and exaggerating hand tremors. Patient asking mortgage or loan underwriter for discharge saying that they will likely go out and drink alcohol but that is their choice. Medical Underwriter discussed patient presented for SI and then patient said I was lying... I was never suicidal... I know what to say to get admitted but I was homeless and I just wanted a place to sleep at night... (it is mortgage or loan underwriter's understanding that patient was at respite prior to this admission). Patient said he does not want to go to groups, finding them not helpful; patient refuses MAT or substance use programs instead wanting to work out sobriety on their own... And that they are not ready to stop drinking. After more discussion about patient's depression patient said perhaps they were willing to start an antidepressant medication and mortgage or loan underwriter again reviewed Wellbutrin and venlafaxine. Patient said they would think about it -patient's withdrawal under control with CIWA scores adequately treated by phenobarbital -borderline treats emerging -patient continues to deny any SI; it is likely patient is getting close to or is already back to baseline. Hopefully patient will consider antidepressant medication 08/20 After much ambivalence about what patient wanted to do, they concluded that they should remain on the unit, starting antidepressant medication and trying to pursue sobriety. Patient found out today that his aunt refuses to let him returned to live with her until he is been in treatment for a month. Patient denies any SI at all and says he does want to stop drinking. Medical Underwriter reviewed again risks/side effects of medications including venlafaxine and patient wanted to start today. -team considered [address] however patient is now wanting treatment 08/21 Patient found to have absconded it with a vape out of their backpack and hiding on their person. When confronted patient acknowledged it, pulled it out of pocked and gave it up (patient took it the day before). Patient then said they were lying about lying regarding his suicidality and that they worried if discharged today patient might harm themselves (prior to today, patient consistently denied any SI, saying they fabricated SI just to get admitted and they were safe for discharge, planning to stay at their aunt's. Either last night or this morning patient learned they would not be allowed to stay at aunt's house post discharge...). Patient said that if they went to a CSS they think they would just leave early and harm themself; pt said they have left every CSS within a couple days. Patient has said numerous untruths during this admission, contradicting themself, changing the story based on the situation... Patient acknowledged this; when mortgage or loan underwriter asked how can anyone know when patient is telling the truth patient acknowledged I do not know.... Medical Underwriter discussed the correlation between being truthful and pursuing sobriety with which pt agreed. (on admission to the unit, patient very clearly said they had been sober from opiates and cocaine for years, giving specific dates and proud of upcoming anniversary; however, on admission, patient told ED staff they had relapsed recently with cocaine/heroin and when patient admitted to [facility] in June, acknowledged relapse at that time as well; to mortgage or loan underwriter the day before patient wanted to discharge and said they really liked AA and would go consistently if allowed to discharge, saying at one point they had been going consistently to AA meetings in [place]; however, the next day upon learning patient can not stay at his aunt's post discharge, patient said they had never been to AA more than once and left after a few minutes feeling uncomfortable; Patient overheard telling a peer that they manipulated nursing, exaggerating withdrawal symptoms to get extra benzos; patient told a nurse that if they did not get more benzos they would, in retaliation, start telling other patients that their medications are being tampered with, specifically to make other patients paranoid about medications...). Patient shared that due to history of trauma there is much anxiety about going to programs with men or having to have male roommates. But that they would be open to going to a program that was either all female or predominantly transgender patients. In discussion patient shared that they were sober (or more so) for about a year while in college, during this time in a good mood, productive and successful. Patient said being on naltrexone had helped with sobriety in the past and wants to get back on it. Patient also decided to start antidepressant Effexor preferring this over Wellbutrin after reviewing risks/side effects profile. Impression: Patient is at baseline. Patient is an unreliable historian. Patient changes their story, history or current symptoms based on the situation and what suits their agenda (which patient grudgingly admits). Medical Underwriter acknowledges that this has been a survival tool, born out of history of trauma and which patient both consciously and unconsciously employs. For this to change patient will need to remain sober for long enough and engaged in therapy for long enough to understand how this survival to is now significantly impeding their treatment and stability. At baseline, patient is emotionally reactive and depending on the situation and patient's agenda, will intermittently express SI. This expression however does not mean patient is in imminent risk for intentionally harming them-self. Rather patients predominant risk is due to their continued struggles with substance abuse and the resulting, associated unsafe behaviors and emotions. Plan: Three day notice Q 15 minute checks Start venlafaxine ER 37.5 mg; will titrate Start naltrexone as MAT for alcohol and opioid cravings Phenobarbital taper Will continue clonazepam 2 mg daily with 1 mg p.r.n. as long as patient is not overly sedated Increase thiamine to 200 mg Patient considering medications Addiction consult place Patient educated on: diagnosis, medication risk/benefits, substance abuse and therapeutic strategies Informed Consent: understands Reason for continued inpatient stay Substantial Risk for: stable for discharge Time Spent With Patient Time: Total time managing care of this patient today ____ minutes.
[2025-08-22 08:00] VITALS: BP 105/61; PULSE 66; TEMP 36.9; O2SAT 98
[2025-08-22] MEDS: Venlafaxine HCl ER 37.5 MG CAP.ER.24H PO (08:37)
[2025-08-22] MEDS: Nicotine Polacrilex Lozenge 4 MG LOZENGE BUCCAL ×4 (08:49→22:07)
[2025-08-22 19:52] VITALS: BP 129/72; PULSE 125; TEMP 36.8; O2SAT 96
--- NOTE | 2025-08-22 23:38 | P.PNPSI_ITS ---
Subjective Subjective Date of Service: 08/22/25 Reason For Visit: SI Interim History: Met with patient; discussed with team Patient calm, tolerating medication; no expressions of SI; agrees to continue pursuing outpatient substance abuse program Mental Status Exam Mental Status Exam Narrative: Pt is alert and oriented; behavior is organized in behavioral control, intermittently manipulative, calm; patient is not in distress; dressed in casual attire, tattoos, long fingernails, facial rings, unkempt; mood is described as ok and affect congruent; eye contact appropriate; Speech is normal rate, volume and prosody; no psychomotor agitation/retardation present; thought process is organized and goal directed; Thought content is on tx, discharge, psychosocial stressors; otherwise pertinent to relevant topics and without any delusional content, paranoid ideations or grandiosity; expressions of SI situationally/agenda dependent/no HI. Denies AVH and there is no evidence of perceptual disturbance. Patients insight and judgment impaired but at baseline and adequate. Diagnostics Vital Signs (24Hr): Vital Signs - 24 hr 08/22/25 08:00 08/22/25 19:52 Temperature 98.5 F 98.2 F Pulse Rate 66 125 H Blood Pressure 105/61 129/72 Pulse Oximetry 98 96 Oxygen Delivery Method Room Air Room Air BMI result Body Mass Index 27.2 Labs 08/16/25 19:13 08/20/25 08:17 Medications Medications Current Medications Acetaminophen (Acetaminophen 325 Mg Tablet) 650 mg PO Q6H PRN PRN Reason: Headache/Pain, Scale 1-10 Last Admin: 08/18/25 18:00 Dose: 650 mg Al Hydroxide/Mg Hydroxide (Magnesium Hydrox/Alum Hydrox 30 Ml Oral.Susp) 30 ml PO Q6H PRN PRN Reason: Heartburn/Nausea Chlorpromazine HCl (Chlorpromazine Hcl 25 Mg Tablet) 75 mg PO TID PRN PRN Reason: moderate anxiety Last Admin: 08/22/25 18:55 Dose: 75 mg Clonazepam (Clonazepam 1 Mg Tablet) 2 mg PO DAILY CANDY Last Admin: 08/22/25 08:39 Dose: 2 mg Clonazepam (Clonazepam 1 Mg Tablet) 1 mg PO DAILY PRN PRN Reason: severe anxiety Last Admin: 08/22/25 11:06 Dose: 1 mg Cyanocobalamin (Cyanocobalamin (Vitamin B-12) 1,000 Mcg Tablet) 1,000 mcg PO DAILY [facility] Last Admin: 08/22/25 08:38 Dose: 1,000 mcg Diphenhydramine HCl (Diphenhydramine Hcl 25 Mg Capsule) 50 mg PO BEDTIME PRN PRN Reason: insomnia Last Admin: 08/22/25 20:17 Dose: 50 mg Famotidine (Famotidine 20 Mg Tablet) 20 mg PO BID PRN PRN Reason: GERD Finasteride (Finasteride 5 Mg Tablet) 1.25 mg PO DAILY [facility] Last Admin: 08/22/25 08:39 Dose: 1.25 mg Folic Acid (Folic Acid 1 Mg Tablet) 1 mg PO DAILY [facility] Last Admin: 08/22/25 08:38 Dose: 1 mg Hydroxyzine HCl (Hydroxyzine Hcl 25 Mg Tablet) 25 mg PO Q6H PRN PRN Reason: mild anxiety Last Admin: 08/22/25 11:06 Dose: 25 mg Magnesium Hydroxide (Milk Of Magnesia 30 Ml Oral.Susp) 30 ml PO DAILY PRN PRN Reason: Constipation Minoxidil (Minoxidil 2.5 Mg Tablet) 1.25 mg PO DAILY [facility] Last Admin: 08/22/25 08:41 Dose: 1.25 mg Naltrexone HCl (Naltrexone Hcl 50 Mg Tablet) 50 mg PO DAILY [facility] Last Admin: 08/22/25 08:39 Dose: 50 mg Nicotine (Nicotine 21 Mg Patch.Td24) 21 mg TRANSDERMA DAILY PRN PRN Reason: nicotine craving Last Admin: 08/21/25 09:27 Dose: 21 mg Nicotine Polacrilex (Nicotine Polacrilex Lozenge 4 Mg Lozenge) 4 mg BUCCAL Q2H PRN PRN Reason: Nicotine Cravings Last Admin: 08/22/25 22:07 Dose: 4 mg Ondansetron HCl (Ondansetron Odt 4 Mg Tab.Rapdis) 4 mg TRANSLINGU Q6H PRN PRN Reason: Nausea and Vomiting Last Admin: 08/18/25 08:55 Dose: 4 mg Pharmacy Consult (Consult Rx Etoh Phenob Im/Po) 1 each MISCELLANE ONCE PRN; Protocol PRN Reason: Consult order Phenobarbital (Phenobarbital 30 Mg Tablet) 30 mg PO DAILY [facility]; Protocol Stop: 08/24/25 09:01 Thiamine HCl (Thiamine Hcl 100 Mg Tablet) 200 mg PO DAILY [facility] Last Admin: 08/22/25 08:42 Dose: 200 mg Trazodone HCl (Trazodone Hcl 100 Mg Tablet) 100 mg PO BEDTIME MRX1 PRN PRN Reason: Insomnia Last Admin: 08/22/25 21:08 Dose: 100 mg Venlafaxine HCl (Venlafaxine Hcl Er 75 Mg Cap.Er.24h) 75 mg PO DAILY CANDY Allergies Allergies Allergy/AdvReac Type Severity Reaction Status Date / Time Opioids - Morphine Analogues Allergy Unknown Verified 08/16/25 18:43 Penicillins Allergy Unknown Verified 08/16/25 18:43 Assessment & Plan Assessment & Plan (1) MDD (major depressive disorder), recurrent severe, without psychosis: Status: Acute Code(s): F33.2 - Major depressive disorder, recurrent severe without psychotic features (2) PTSD (post-traumatic stress disorder): Status: Acute Code(s): F43.10 - Post-traumatic stress disorder, unspecified (3) Alcohol dependence: Status: Acute Code(s): F10.20 - Alcohol dependence, uncomplicated (4) Alcohol withdrawal: Status: Acute Code(s): F10.939 - Alcohol use, unspecified with withdrawal, unspecified (5) Cocaine use disorder: Status: Acute Code(s): F14.10 - Cocaine abuse, uncomplicated (6) Opioid use disorder: Status: Acute Code(s): F11.90 - Opioid use, unspecified, uncomplicated (7) Homeless: Status: Acute Code(s): Z59.00 - Homelessness unspecified Plan HPI: Patient is a 25-year-old, non-binary (they/them) person (biologically male at ) with past medical history of MDD, PTSD, eating disorder, alcohol dependency, cocaine/heroin use disorder who presents for SI in the face of untreated depression, psychosocial stressors and ongoing severe alcoholism. They report ongoing depression and on going alcoholism, drinking a 0.5 gal of vodka a day. Patient reports they fractured their right Humeral head in June after falling down the stairs intoxicated; patient reports going to medical respite during which time had bacteremia and was started on antibiotics and developed a blood clot in the left arm and was started on Xarelto. Patient reports having stopped both medications, mid July,, feeling they did not need them. Patient has been staying at a respite since then, remaining very depressed and drinking daily, hiding the alcohol. They report this past week I was drinking so much, not eating...last week was bad, laying in bed, drinking vodka, not eating or drinking water.. Patient reports they felt suicidal in the sense I did not want to live like that anymore... And had some vague ideas on what they might do but no plan or intent. Patient called 911 asking for help, resulting in this admission. Patient denies history of manic episodes or behaviors; denies AVH. Initially reported to policy writer sales that they were sober from cocaine and heroin for the past 4 years however it was later found that patient relapsed on both cocaine and heroin this past June. Patient reports history of alcohol withdrawal seizures and delirium tremens. Formulation/clinical reasoning: Patient has longstanding depression that is untreated. Symptoms worsened by ongoing, severe alcohol abuse with intermittent cocaine opioid use. Patient is ambivalent about medications, anxious about weight gain; also ambivalent about substance use treatment. Patient says that SI was only in the context of intoxication and now that they are detoxing, SI is fully resolved. Patient ambivalent about receiving treatment for detox, not wanting to forego clonazepam medication. Patient reports they have been on clonazepam 2 mg daily with an extra 1 mg p.r.n. for several years and wants this continued during detox. Regarding withdrawal: Patient currently withdrawing from alcohol with history of DTs and withdrawal seizures; patient was initially put on both Ativan p.r.n. and clonazepam p.r.n. as well as started on phenobarbital 60 mg b.i.d.. Discussed with hospitalist and pharmacy and will switch to a formal phenobarbital protocol; will start with 7 milligrams/kilogram instead of a higher dose since patient has already received 180 mg of phenobarbital over 10 mg of benzos. Discussed case with nursing will continue CIWA to make sure that withdrawal symptoms are under control; if withdrawal symptoms worsen will transferred to the medical floor. Regarding clot: Patient does not seem to have a clotting disorder and left arm blood clot was due to midline being placed. Patient does not want to be on anticoagulant; stopped antibiotics early however currently afebrile WBC WNL; hospitalist will follow and make recommendations regarding Hospital course: 08/19 Patient overheard talking about fooling the nurses into getting extra clonazepam with tearfulness and exaggerating hand tremors. Patient asking policy writer sales for discharge saying that they will likely go out and drink alcohol but that is their choice. Cutting Machine Fixer discussed patient presented for SI and then patient said I was lying... I was never suicidal... I know what to say to get admitted but I was homeless and I just wanted a place to sleep at night... (it is policy writer sales's understanding that patient was at respite prior to this admission). Patient said he does not want to go to groups, finding them not helpful; patient refuses MAT or substance use programs instead wanting to work out sobriety on their own... And that they are not ready to stop drinking. After more discussion about patient's depression patient said perhaps they were willing to start an antidepressant medication and policy writer sales again reviewed Wellbutrin and venlafaxine. Patient said they would think about it -patient's withdrawal under control with CIWA scores adequately treated by phenobarbital -borderline treats emerging -patient continues to deny any SI; it is likely patient is getting close to or is already back to baseline. Hopefully patient will consider antidepressant medication 08/20 After much ambivalence about what patient wanted to do, they concluded that they should remain on the unit, starting antidepressant medication and trying to pursue sobriety. Patient found out today that his aunt refuses to let him returned to live with her until he is been in treatment for a month. Patient denies any SI at all and says he does want to stop drinking. Cutting Machine Fixer reviewed again risks/side effects of medications including venlafaxine and patient wanted to start today. -team considered section 35 however patient is now wanting treatment 08/21 Patient found to have absconded it with a vape out of their backpack and hiding on their person. When confronted patient acknowledged it, pulled it out of pocked and gave it up (patient took it the day before). Patient then said they were lying about lying regarding his suicidality and that they worried if discharged today patient might harm themselves (prior to today, patient consistently denied any SI, saying they fabricated SI just to get admitted and they were safe for discharge, planning to stay at their aunt's. Either last night or this morning patient learned they would not be allowed to stay at aunt's house post discharge...). Patient said that if they went to a CSS they think they would just leave early and harm themself; pt said they have left every CSS within a couple days. Patient has said numerous untruths during this admission, contradicting themself, changing the story based on the situation... Patient acknowledged this; when policy writer sales asked how can anyone know when patient is telling the truth patient acknowledged I do not know.... Cutting Machine Fixer discussed the correlation between being truthful and pursuing sobriety with which pt agreed. (on admission to the unit, patient very clearly said they had been sober from opiates and cocaine for years, giving specific dates and proud of upcoming anniversary; however, on admission, patient told ED staff they had relapsed recently with cocaine/heroin and when patient admitted to [facility] in June, acknowledged relapse at that time as well; to policy writer sales the day before patient wanted to discharge and said they really liked AA and would go consistently if allowed to discharge, saying at one point they had been going consistently to AA meetings in [place]; however, the next day upon learning patient can not stay at his aunt's post discharge, patient said they had never been to AA more than once and left after a few minutes feeling uncomfortable; Patient overheard telling a peer that they manipulated nursing, exaggerating withdrawal symptoms to get extra benzos; patient told a nurse that if they did not get more benzos they would, in retaliation, start telling other patients that their medications are being tampered with, specifically to make other patients paranoid about medications...). Patient shared that due to history of trauma there is much anxiety about going to programs with men or having to have male roommates. But that they would be open to going to a program that was either all female or predominantly transgender patients. In discussion patient shared that they were sober (or more so) for about a year while in college, during this time in a good mood, productive and successful. Patient said being on naltrexone had helped with sobriety in the past and wants to get back on it. Patient also decided to start antidepressant Effexor preferring this over Wellbutrin after reviewing risks/side effects profile. Impression: Patient is at baseline. Patient is an unreliable historian. Patient changes their story, history or current symptoms based on the situation and what suits their agenda (which patient grudgingly admits). Cutting Machine Fixer acknowledges that this has been a survival tool, born out of history of trauma and which patient both consciously and unconsciously employs. For this to change patient, patient will need to remain sober and in therapy for long enough to understand how this survival tool is now significantly impeding their treatment and stability. At baseline, patient is emotionally reactive and depending on the situation and patient's agenda, will intermittently express SI. This expression however does not mean patient is in imminent risk for intentionally harming them-self. Rather patients predominant risk is due to their continued struggles with substance abuse and the resulting, associated unsafe behaviors and emotions. Plan: Three day notice Q 15 minute checks increase to venlafaxine ER 75 mg; will titrate naltrexone 50mg as MAT for alcohol and opioid cravings -will get lfts Phenobarbital taper Will continue clonazepam 2 mg daily with 1 mg p.r.n. as long as patient is not overly sedated Increase thiamine to [address] Patient educated on: diagnosis Informed Consent: understands Reason for continued inpatient stay Substantial Risk for: stable for discharge Time Spent With Patient Time: Total time managing care of this patient today ____ minutes.
[2025-08-23] MEDS: Venlafaxine HCl ER 75 MG CAP.ER.24H PO (07:52)
[2025-08-23] MEDS: Nicotine Polacrilex Lozenge 4 MG LOZENGE BUCCAL ×3 (07:57→17:35)
[2025-08-23 08:00] VITALS: BP 93/52; PULSE 66; RESP 16; TEMP 36.4; O2SAT 97
[2025-08-23 19:50] VITALS: BP 129/75; PULSE 92; RESP 18; TEMP 36.1; O2SAT 97
--- NOTE | 2025-08-23 19:53 | PC.NURSE ---
pt signed a 3 day notice on Monday08/23/25. will be up on Monday08/27/25.
--- NOTE | 2025-08-24 01:48 | HO.PSYCHPN ---
Subjective Subjective Date of Service: 08/23/25 Reason For Visit: SI Subjective Notes: Conditional Voluntary Healthcare Proxy: No Guardianship: No Medical Problems Affecting Mental Status: No Interim History: Patient seen in the OT office.? They were calm, cooperative, communicative. They asked about getting Thorazine either more frequently or at a higher dosage. They report chronic SI. State they feel safe on the unit at this time. Otherwise they denied concerns about their care. Patient denies HI, AH, VH. Medication Compliance: Yes Side effects from medications: No Attending Groups: Intermittent Review of Systems Acute medical concerns: No Medical Review of Systems: unchanged Review of Systems Review of Systems Yes all other systems are reviewed and are negative Mental Status Exam Mental Status Exam Narrative: Patient Appearance: Well Groomed, adequate hygiene Patient Behavior: Appropriate Level of Consciousness: Awake, alert Patient Orientation: Person, Place and Time, situational context Memory: grossly intact to recent events Psychomotor: no agitation or slowing Speech: normal rate, tone, volume Mood: ?okay? Affect: constricted Thought Process: Goal Oriented Thought Content: chronic SI, no plan or intent; denies HI; focused on treatment questions Hallucinations: Denies; does not appear preoccupied Delusions: None evinced Insight: mild impairment Judgment: mild impairment Impulsivity: low Diagnostics Vital Signs (24Hr): Vital Signs - 24 hr 08/23/25 08:00 08/23/25 19:50 Temperature 97.6 F 97.0 F Pulse Rate 66 92 Respiratory Rate 16 18 Blood Pressure 93/52 L 129/75 Pulse Oximetry 97 97 Oxygen Delivery Method Room Air Room Air BMI result Body Mass Index 27.2 Labs 08/16/25 19:13 08/20/25 08:17 Medications Medications Current Medications Acetaminophen (Acetaminophen 325 Mg Tablet) 650 mg PO Q6H PRN PRN Reason: Headache/Pain, Scale 1-10 Last Admin: 08/18/25 18:00 Dose: 650 mg Al Hydroxide/Mg Hydroxide (Magnesium Hydrox/Alum Hydrox 30 Ml Oral.Susp) 30 ml PO Q6H PRN PRN Reason: Heartburn/Nausea Chlorpromazine HCl (Chlorpromazine Hcl 25 Mg Tablet) 75 mg PO TID PRN PRN Reason: moderate anxiety Last Admin: 08/23/25 20:31 Dose: 75 mg Clonazepam (Clonazepam 1 Mg Tablet) 2 mg PO DAILY CANDY Last Admin: 08/23/25 07:53 Dose: 2 mg Clonazepam (Clonazepam 1 Mg Tablet) 1 mg PO DAILY PRN PRN Reason: severe anxiety Last Admin: 08/23/25 15:09 Dose: 1 mg Cyanocobalamin (Cyanocobalamin (Vitamin B-12) 1,000 Mcg Tablet) 1,000 mcg PO DAILY [facility] Last Admin: 08/23/25 07:52 Dose: 1,000 mcg Diphenhydramine HCl (Diphenhydramine Hcl 25 Mg Capsule) 50 mg PO BEDTIME PRN PRN Reason: insomnia Last Admin: 08/23/25 20:31 Dose: 50 mg Famotidine (Famotidine 20 Mg Tablet) 20 mg PO BID PRN PRN Reason: GERD Finasteride (Finasteride 5 Mg Tablet) 1.25 mg PO DAILY [facility] Last Admin: 08/23/25 07:54 Dose: 1.25 mg Folic Acid (Folic Acid 1 Mg Tablet) 1 mg PO DAILY [facility] Last Admin: 08/23/25 07:53 Dose: 1 mg Hydroxyzine HCl (Hydroxyzine Hcl 25 Mg Tablet) 25 mg PO Q6H PRN PRN Reason: mild anxiety Last Admin: 08/23/25 20:31 Dose: 25 mg Magnesium Hydroxide (Milk Of Magnesia 30 Ml Oral.Susp) 30 ml PO DAILY PRN PRN Reason: Constipation Minoxidil (Minoxidil 2.5 Mg Tablet) 1.25 mg PO DAILY [facility] Last Admin: 08/23/25 07:53 Dose: 1.25 mg Naltrexone HCl (Naltrexone Hcl 50 Mg Tablet) 50 mg PO DAILY [facility] Last Admin: 08/23/25 07:52 Dose: 50 mg Nicotine (Nicotine 21 Mg Patch.Td24) 21 mg TRANSDERMA DAILY PRN PRN Reason: nicotine craving Last Admin: 08/21/25 09:27 Dose: 21 mg Nicotine Polacrilex (Nicotine Polacrilex Lozenge 4 Mg Lozenge) 4 mg BUCCAL Q2H PRN PRN Reason: Nicotine Cravings Last Admin: 08/23/25 17:35 Dose: 4 mg Ondansetron HCl (Ondansetron Odt 4 Mg Tab.Rapdis) 4 mg TRANSLINGU Q6H PRN PRN Reason: Nausea and Vomiting Last Admin: 08/18/25 08:55 Dose: 4 mg Pharmacy Consult (Consult Rx Etoh Phenob Im/Po) 1 each MISCELLANE ONCE PRN; Protocol PRN Reason: Consult order Phenobarbital (Phenobarbital 30 Mg Tablet) 30 mg PO DAILY CANDY; Protocol Stop: 08/24/25 09:01 Last Admin: 08/23/25 07:52 Dose: 30 mg Thiamine HCl (Thiamine Hcl 100 Mg Tablet) 200 mg PO DAILY [facility] Last Admin: 08/23/25 07:52 Dose: 200 mg Trazodone HCl (Trazodone Hcl 100 Mg Tablet) 100 mg PO BEDTIME MRX1 PRN PRN Reason: Insomnia Last Admin: 08/23/25 21:48 Dose: 100 mg Venlafaxine HCl (Venlafaxine Hcl Er 75 Mg Cap.Er.24h) 75 mg PO DAILY [facility] Last Admin: 08/23/25 07:52 Dose: 75 mg Allergies Allergies Allergy/AdvReac Type Severity Reaction Status Date / Time Opioids - Morphine Analogues Allergy Unknown Verified 08/16/25 18:43 Penicillins Allergy Unknown Verified 08/16/25 18:43 Assessment & Plan Assessment & Plan (1) MDD (major depressive disorder), recurrent severe, without psychosis: Status: Acute Code(s): F33.2 - Major depressive disorder, recurrent severe without psychotic features (2) PTSD (post-traumatic stress disorder): Status: Acute Code(s): F43.10 - Post-traumatic stress disorder, unspecified (3) Alcohol dependence: Status: Acute Code(s): F10.20 - Alcohol dependence, uncomplicated (4) Alcohol withdrawal: Status: Acute Code(s): F10.939 - Alcohol use, unspecified with withdrawal, unspecified (5) Cocaine use disorder: Status: Acute Code(s): F14.10 - Cocaine abuse, uncomplicated (6) Opioid use disorder: Status: Acute Code(s): F11.90 - Opioid use, unspecified, uncomplicated (7) Homeless: Status: Acute Code(s): Z59.00 - Homelessness unspecified Plan HPI: Patient is a 25-year-old, non-binary (they/them) person (biologically male at ) with past medical history of MDD, PTSD, eating disorder, alcohol dependency, cocaine/heroin use disorder who presents for SI in the face of untreated depression, psychosocial stressors and ongoing severe alcoholism. They report ongoing depression and on going alcoholism, drinking a 0.5 gal of vodka a day. Patient reports they fractured their right Humeral head in June after falling down the stairs intoxicated; patient reports going to medical respite during which time had bacteremia and was started on antibiotics and developed a blood clot in the left arm and was started on Xarelto. Patient reports having stopped both medications, mid July,, feeling they did not need them. Patient has been staying at a respite since then, remaining very depressed and drinking daily, hiding the alcohol. They report this past week I was drinking so much, not eating...last week was bad, laying in bed, drinking vodka, not eating or drinking water.. Patient reports they felt suicidal in the sense I did not want to live like that anymore... And had some vague ideas on what they might do but no plan or intent. Patient called 911 asking for help, resulting in this admission. Patient denies history of manic episodes or behaviors; denies AVH. Initially reported to sql report writer that they were sober from cocaine and heroin for the past 4 years however it was later found that patient relapsed on both cocaine and heroin this past June. Patient reports history of alcohol withdrawal seizures and delirium tremens. Formulation/clinical reasoning: Patient has longstanding depression that is untreated. Symptoms worsened by ongoing, severe alcohol abuse with intermittent cocaine opioid use. Patient is ambivalent about medications, anxious about weight gain; also ambivalent about substance use treatment. Patient says that SI was only in the context of intoxication and now that they are detoxing, SI is fully resolved. Patient ambivalent about receiving treatment for detox, not wanting to forego clonazepam medication. Patient reports they have been on clonazepam 2 mg daily with an extra 1 mg p.r.n. for several years and wants this continued during detox. Regarding withdrawal: Patient currently withdrawing from alcohol with history of DTs and withdrawal seizures; patient was initially put on both Ativan p.r.n. and clonazepam p.r.n. as well as started on phenobarbital 60 mg b.i.d.. Discussed with hospitalist and pharmacy and will switch to a formal phenobarbital protocol; will start with 7 milligrams/kilogram instead of a higher dose since patient has already received 180 mg of phenobarbital over 10 mg of benzos. Discussed case with nursing will continue CIWA to make sure that withdrawal symptoms are under control; if withdrawal symptoms worsen will transferred to the medical floor. Regarding clot: Patient does not seem to have a clotting disorder and left arm blood clot was due to midline being placed. Patient does not want to be on anticoagulant; stopped antibiotics early however currently afebrile WBC WNL; hospitalist will follow and make recommendations regarding Hospital course: 08/19 Patient overheard talking about fooling the nurses into getting extra clonazepam with tearfulness and exaggerating hand tremors. Patient asking sql report writer for discharge saying that they will likely go out and drink alcohol but that is their choice. Lock Maintenance Supervisor discussed patient presented for SI and then patient said I was lying... I was never suicidal... I know what to say to get admitted but I was homeless and I just wanted a place to sleep at night... (it is sql report writer's understanding that patient was at respite prior to this admission). Patient said he does not want to go to groups, finding them not helpful; patient refuses MAT or substance use programs instead wanting to work out sobriety on their own... And that they are not ready to stop drinking. After more discussion about patient's depression patient said perhaps they were willing to start an antidepressant medication and sql report writer again reviewed Wellbutrin and venlafaxine. Patient said they would think about it -patient's withdrawal under control with CIWA scores adequately treated by phenobarbital -borderline treats emerging -patient continues to deny any SI; it is likely patient is getting close to or is already back to baseline. Hopefully patient will consider antidepressant medication 08/20 After much ambivalence about what patient wanted to do, they concluded that they should remain on the unit, starting antidepressant medication and trying to pursue sobriety. Patient found out today that his aunt refuses to let him returned to live with her until he is been in treatment for a month. Patient denies any SI at all and says he does want to stop drinking. Lock Maintenance Supervisor reviewed again risks/side effects of medications including venlafaxine and patient wanted to start today. -team considered section 35 however patient is now wanting treatment 08/21 Patient found to have absconded it with a vape out of their backpack and hiding on their person. When confronted patient acknowledged it, pulled it out of pocked and gave it up (patient took it the day before). Patient then said they were lying about lying regarding his suicidality and that they worried if discharged today patient might harm themselves (prior to today, patient consistently denied any SI, saying they fabricated SI just to get admitted and they were safe for discharge, planning to stay at their aunt's. Either last night or this morning patient learned they would not be allowed to stay at aunt's house post discharge...). Patient said that if they went to a CSS they think they would just leave early and harm themself; pt said they have left every CSS within a couple days. Patient has said numerous untruths during this admission, contradicting themself, changing the story based on the situation... Patient acknowledged this; when sql report writer asked how can anyone know when patient is telling the truth patient acknowledged I do not know.... Lock Maintenance Supervisor discussed the correlation between being truthful and pursuing sobriety with which pt agreed. (on admission to the unit, patient very clearly said they had been sober from opiates and cocaine for years, giving specific dates and proud of upcoming anniversary; however, on admission, patient told ED staff they had relapsed recently with cocaine/heroin and when patient admitted to [facility] in June, acknowledged relapse at that time as well; to sql report writer the day before patient wanted to discharge and said they really liked AA and would go consistently if allowed to discharge, saying at one point they had been going consistently to AA meetings in [place]; however, the next day upon learning patient can not stay at his aunt's post discharge, patient said they had never been to AA more than once and left after a few minutes feeling uncomfortable; Patient overheard telling a peer that they manipulated nursing, exaggerating withdrawal symptoms to get extra benzos; patient told a nurse that if they did not get more benzos they would, in retaliation, start telling other patients that their medications are being tampered with, specifically to make other patients paranoid about medications...). Patient shared that due to history of trauma there is much anxiety about going to programs with men or having to have male roommates. But that they would be open to going to a program that was either all female or predominantly transgender patients. In discussion patient shared that they were sober (or more so) for about a year while in college, during this time in a good mood, productive and successful. Patient said being on naltrexone had helped with sobriety in the past and wants to get back on it. Patient also decided to start antidepressant Effexor preferring this over Wellbutrin after reviewing risks/side effects profile. Impression: Patient is at baseline. Patient is an unreliable historian. Patient changes their story, history or current symptoms based on the situation and what suits their agenda (which patient grudgingly admits). Lock Maintenance Supervisor acknowledges that this has been a survival tool, born out of history of trauma and which patient both consciously and unconsciously employs. For this to change patient, patient will need to remain sober and in therapy for long enough to understand how this survival tool is now significantly impeding their treatment and stability. At baseline, patient is emotionally reactive and depending on the situation and patient's agenda, will intermittently express SI. This expression however does not mean patient is in imminent risk for intentionally harming them-self. Rather patients predominant risk is due to their continued struggles with substance abuse and the resulting, associated unsafe behaviors and emotions. Plan: Three day notice Q 15 minute checks increase to venlafaxine ER 75 mg; will titrate naltrexone 50mg as MAT for alcohol and opioid cravings -will get lfts Phenobarbital taper Will continue clonazepam 2 mg daily with 1 mg p.r.n. as long as patient is not overly sedated Increase thiamine to [address] 08/23: no changes today - patient seeking more Thorazine will monitor. Patient educated on: diagnosis and medication risk/benefits Informed Consent: understands Reason for continued inpatient stay Substantial Risk for: harm to self and rapid decompensation Time Spent With Patient Time: Total time managing care of this patient today __15__ minutes.
[2025-08-24] MEDS: Nicotine Polacrilex Lozenge 4 MG LOZENGE BUCCAL ×4 (07:28→21:23)
[2025-08-24] MEDS: Venlafaxine HCl ER 75 MG CAP.ER.24H PO (07:43)
[2025-08-24 07:58] VITALS: BP 117/56; PULSE 75; RESP 18; O2SAT 98
[2025-08-24 08:57] LABS: Alanine Aminotransferase 114 U/L (0-40); Albumin Level 4.2 g/dL (3.5-5.0); Alkaline Phosphatase 55 U/L (39-117); Aspartate Amino Transferase 41 U/L (5-37); Total Protein 6.4 g/dL (6.5-8.0)
[2025-08-24] MEDS: Nicotine 21 MG PATCH.TD24 TRANSDERMA (10:11)
[2025-08-24 19:53] VITALS: BP 117/61; PULSE 85; RESP 15; TEMP 36.5; O2SAT 96
--- NOTE | 2025-08-24 23:31 | P.PNPSI_ITS ---
Subjective Subjective Date of Service: 08/24/25 Reason For Visit: SI Subjective Notes: Conditional Voluntary Healthcare Proxy: No Guardianship: No Medical Problems Affecting Mental Status: No Interim History: Patient was found in their room. Their stance has changed significantly. They state that they talked with their family, and family are now saying they can return home on Monday. As a result, patient reports feeling hopeful and anxious about this. Patient states that last suicidal ideation was yesterday. Patient also now states that they want to stop taking Thorazine and take a different medication instead. They stated that they are experiencing tremor related to the medication. They were referred to the primary day team psychiatrist to discuss these issues further. They were agreeable. Medication Compliance: Yes Side effects from medications: No Attending Groups: Intermittent Review of Systems Acute medical concerns: No Medical Review of Systems: unchanged Mental Status Exam Mental Status Exam Narrative: Patient Appearance: Well Groomed, adequate hygiene Patient Behavior: Appropriate Level of Consciousness: Awake, alert Patient Orientation: Person, Place and Time, situational context Memory: grossly intact to recent events Psychomotor: no agitation or slowing Speech: normal rate, tone, volume Mood: ?okay? Affect: appropriate range Thought Process: Goal Oriented Thought Content: chronic SI, though denies currently; focused on treatment questions Hallucinations: Denies; does not appear preoccupied Delusions: None evinced Insight: mild impairment Judgment: mild impairment Impulsivity: low Diagnostics Vital Signs (24Hr): Vital Signs - 24 hr 08/24/25 07:58 08/24/25 19:53 Temperature 97.7 F Pulse Rate 75 85 Respiratory Rate 18 15 Blood Pressure 117/56 L 117/61 Pulse Oximetry 98 96 Oxygen Delivery Method Room Air BMI result Body Mass Index 27.2 Labs 08/16/25 19:13 08/20/25 08:17 Labs: Laboratory Results - last 48 hr 08/24/25 08:22 Total Bilirubin 0.4 Direct Bilirubin 0.2 AST 41 H ALT 114 H Alkaline Phosphatase 55 Total Protein 6.4 L Albumin 4.2 Medications Medications Current Medications Acetaminophen (Acetaminophen 325 Mg Tablet) 650 mg PO Q6H PRN PRN Reason: Headache/Pain, Scale 1-10 Last Admin: 08/18/25 18:00 Dose: 650 mg Al Hydroxide/Mg Hydroxide (Magnesium Hydrox/Alum Hydrox 30 Ml Oral.Susp) 30 ml PO Q6H PRN PRN Reason: Heartburn/Nausea Chlorpromazine HCl (Chlorpromazine Hcl 25 Mg Tablet) 75 mg PO TID PRN PRN Reason: moderate anxiety Last Admin: 08/24/25 21:24 Dose: 75 mg Clonazepam (Clonazepam 1 Mg Tablet) 2 mg PO DAILY [facility] Last Admin: 08/24/25 07:42 Dose: 2 mg Clonazepam (Clonazepam 1 Mg Tablet) 1 mg PO DAILY PRN PRN Reason: severe anxiety Last Admin: 08/24/25 12:08 Dose: 1 mg Cyanocobalamin (Cyanocobalamin (Vitamin B-12) 1,000 Mcg Tablet) 1,000 mcg PO DAILY [facility] Last Admin: 08/24/25 07:42 Dose: 1,000 mcg Diphenhydramine HCl (Diphenhydramine Hcl 25 Mg Capsule) 50 mg PO BEDTIME PRN PRN Reason: insomnia Last Admin: 08/24/25 21:23 Dose: 50 mg Famotidine (Famotidine 20 Mg Tablet) 20 mg PO BID PRN PRN Reason: GERD Finasteride (Finasteride 5 Mg Tablet) 1.25 mg PO DAILY [facility] Last Admin: 08/24/25 07:43 Dose: 1.25 mg Folic Acid (Folic Acid 1 Mg Tablet) 1 mg PO DAILY [facility] Last Admin: 08/24/25 07:43 Dose: 1 mg Hydroxyzine HCl (Hydroxyzine Hcl 25 Mg Tablet) 25 mg PO Q6H PRN PRN Reason: mild anxiety Last Admin: 08/24/25 21:24 Dose: 25 mg Magnesium Hydroxide (Milk Of Magnesia 30 Ml Oral.Susp) 30 ml PO DAILY PRN PRN Reason: Constipation Minoxidil (Minoxidil 2.5 Mg Tablet) 1.25 mg PO DAILY [facility] Last Admin: 08/24/25 07:47 Dose: 1.25 mg Naltrexone HCl (Naltrexone Hcl 50 Mg Tablet) 50 mg PO DAILY [facility] Last Admin: 08/24/25 07:43 Dose: 50 mg Nicotine (Nicotine 21 Mg Patch.Td24) 21 mg TRANSDERMA DAILY PRN PRN Reason: nicotine craving Last Admin: 08/24/25 10:11 Dose: 21 mg Nicotine Polacrilex (Nicotine Polacrilex Lozenge 4 Mg Lozenge) 4 mg BUCCAL Q2H PRN PRN Reason: Nicotine Cravings Last Admin: 08/24/25 21:23 Dose: 4 mg Ondansetron HCl (Ondansetron Odt 4 Mg Tab.Rapdis) 4 mg TRANSLINGU Q6H PRN PRN Reason: Nausea and Vomiting Last Admin: 08/18/25 08:55 Dose: 4 mg Pharmacy Consult (Consult Rx Etoh Phenob Im/Po) 1 each MISCELLANE ONCE PRN; Protocol PRN Reason: Consult order Thiamine HCl (Thiamine Hcl 100 Mg Tablet) 200 mg PO DAILY [facility] Last Admin: 08/24/25 07:43 Dose: 200 mg Trazodone HCl (Trazodone Hcl 100 Mg Tablet) 100 mg PO BEDTIME MRX1 PRN PRN Reason: Insomnia Last Admin: 08/24/25 21:24 Dose: 100 mg Venlafaxine HCl (Venlafaxine Hcl Er 75 Mg Cap.Er.24h) 75 mg PO DAILY [facility] Last Admin: 08/24/25 07:43 Dose: 75 mg Allergies Allergies Allergy/AdvReac Type Severity Reaction Status Date / Time Opioids - Morphine Analogues Allergy Unknown Verified 08/16/25 18:43 Penicillins Allergy Unknown Verified 08/16/25 18:43 Assessment & Plan Assessment & Plan (1) MDD (major depressive disorder), recurrent severe, without psychosis: Status: Acute Code(s): F33.2 - Major depressive disorder, recurrent severe without psychotic features (2) PTSD (post-traumatic stress disorder): Status: Acute Code(s): F43.10 - Post-traumatic stress disorder, unspecified (3) Alcohol dependence: Status: Acute Code(s): F10.20 - Alcohol dependence, uncomplicated (4) Alcohol withdrawal: Status: Acute Code(s): F10.939 - Alcohol use, unspecified with withdrawal, unspecified (5) Cocaine use disorder: Status: Acute Code(s): F14.10 - Cocaine abuse, uncomplicated (6) Opioid use disorder: Status: Acute Code(s): F11.90 - Opioid use, unspecified, uncomplicated (7) Homeless: Status: Acute Code(s): Z59.00 - Homelessness unspecified Plan HPI: Patient is a 25-year-old, non-binary (they/them) person (biologically male at ) with past medical history of MDD, PTSD, eating disorder, alcohol dependency, cocaine/heroin use disorder who presents for SI in the face of untreated depression, psychosocial stressors and ongoing severe alcoholism. They report ongoing depression and on going alcoholism, drinking a 0.5 gal of vodka a day. Patient reports they fractured their right Humeral head in June after falling down the stairs intoxicated; patient reports going to medical respite during which time had bacteremia and was started on antibiotics and developed a blood clot in the left arm and was started on Xarelto. Patient reports having stopped both medications, mid July,, feeling they did not need them. Patient has been staying at a respite since then, remaining very depressed and drinking daily, hiding the alcohol. They report this past week I was drinking so much, not eating...last week was bad, laying in bed, drinking vodka, not eating or drinking water.. Patient reports they felt suicidal in the sense I did not want to live like that anymore... And had some vague ideas on what they might do but no plan or intent. Patient called 911 asking for help, resulting in this admission. Patient denies history of manic episodes or behaviors; denies AVH. Initially reported to typewriter tester that they were sober from cocaine and heroin for the past 4 years however it was later found that patient relapsed on both cocaine and heroin this past June. Patient reports history of alcohol withdrawal seizures and delirium tremens. Formulation/clinical reasoning: Patient has longstanding depression that is untreated. Symptoms worsened by ongoing, severe alcohol abuse with intermittent cocaine opioid use. Patient is ambivalent about medications, anxious about weight gain; also ambivalent about substance use treatment. Patient says that SI was only in the context of intoxication and now that they are detoxing, SI is fully resolved. Patient ambivalent about receiving treatment for detox, not wanting to forego clonazepam medication. Patient reports they have been on clonazepam 2 mg daily with an extra 1 mg p.r.n. for several years and wants this continued during detox. Regarding withdrawal: Patient currently withdrawing from alcohol with history of DTs and withdrawal seizures; patient was initially put on both Ativan p.r.n. and clonazepam p.r.n. as well as started on phenobarbital 60 mg b.i.d.. Discussed with hospitalist and pharmacy and will switch to a formal phenobarbital protocol; will start with 7 milligrams/kilogram instead of a higher dose since patient has already received 180 mg of phenobarbital over 10 mg of benzos. Discussed case with nursing will continue CIWA to make sure that withdrawal symptoms are under control; if withdrawal symptoms worsen will transferred to the medical floor. Regarding clot: Patient does not seem to have a clotting disorder and left arm blood clot was due to midline being placed. Patient does not want to be on anticoagulant; stopped antibiotics early however currently afebrile WBC WNL; hospitalist will follow and make recommendations regarding Hospital course: 08/19 Patient overheard talking about fooling the nurses into getting extra clonazepam with tearfulness and exaggerating hand tremors. Patient asking typewriter tester for discharge saying that they will likely go out and drink alcohol but that is their choice. [employer] discussed patient presented for SI and then patient said I was lying... I was never suicidal... I know what to say to get admitted but I was homeless and I just wanted a place to sleep at night... (it is typewriter tester's understanding that patient was at respite prior to this admission). Patient said he does not want to go to groups, finding them not helpful; patient refuses MAT or substance use programs instead wanting to work out sobriety on their own... And that they are not ready to stop drinking. After more discussion about patient's depression patient said perhaps they were willing to start an antidepressant medication and typewriter tester again reviewed Wellbutrin and venlafaxine. Patient said they would think about it -patient's withdrawal under control with CIWA scores adequately treated by phenobarbital -borderline treats emerging -patient continues to deny any SI; it is likely patient is getting close to or is already back to baseline. Hopefully patient will consider antidepressant medication 08/20 After much ambivalence about what patient wanted to do, they concluded that they should remain on the unit, starting antidepressant medication and trying to pursue sobriety. Patient found out today that his aunt refuses to let him returned to live with her until he is been in treatment for a month. Patient denies any SI at all and says he does want to stop drinking. [employer] reviewed again risks/side effects of medications including venlafaxine and patient wanted to start today. -team considered section 35 however patient is now wanting treatment 08/21 Patient found to have absconded it with a vape out of their backpack and hiding on their person. When confronted patient acknowledged it, pulled it out of pocked and gave it up (patient took it the day before). Patient then said they were lying about lying regarding his suicidality and that they worried if discharged today patient might harm themselves (prior to today, patient consistently denied any SI, saying they fabricated SI just to get admitted and they were safe for discharge, planning to stay at their aunt's. Either last night or this morning patient learned they would not be allowed to stay at aunt's house post discharge...). Patient said that if they went to a CSS they think they would just leave early and harm themself; pt said they have left every CSS within a couple days. Patient has said numerous untruths during this admission, contradicting themself, changing the story based on the situation... Patient acknowledged this; when typewriter tester asked how can anyone know when patient is telling the truth patient acknowledged I do not know.... [employer] discussed the correlation between being truthful and pursuing sobriety with which pt agreed. (on admission to the unit, patient very clearly said they had been sober from opiates and cocaine for years, giving specific dates and proud of upcoming anniversary; however, on admission, patient told ED staff they had relapsed recently with cocaine/heroin and when patient admitted to [facility] in June, acknowledged relapse at that time as well; to typewriter tester the day before patient wanted to discharge and said they really liked AA and would go consistently if allowed to discharge, saying at one point they had been going consistently to AA meetings in [place]; however, the next day upon learning patient can not stay at his aunt's post discharge, patient said they had never been to AA more than once and left after a few minutes feeling uncomfortable; Patient overheard telling a peer that they manipulated nursing, exaggerating withdrawal symptoms to get extra benzos; patient told a nurse that if they did not get more benzos they would, in retaliation, start telling other patients that their medications are being tampered with, specifically to make other patients paranoid about medications...). Patient shared that due to history of trauma there is much anxiety about going to programs with men or having to have male roommates. But that they would be open to going to a program that was either all female or predominantly transgender patients. In discussion patient shared that they were sober (or more so) for about a year while in college, during this time in a good mood, productive and successful. Patient said being on naltrexone had helped with sobriety in the past and wants to get back on it. Patient also decided to start antidepressant Effexor preferring this over Wellbutrin after reviewing risks/side effects profile. Impression: Patient is at baseline. Patient is an unreliable historian. Patient changes their story, history or current symptoms based on the situation and what suits their agenda (which patient grudgingly admits). [employer] acknowledges that this has been a survival tool, born out of history of trauma and which patient both consciously and unconsciously employs. For this to change patient, patient will need to remain sober and in therapy for long enough to understand how this survival tool is now significantly impeding their treatment and stability. At baseline, patient is emotionally reactive and depending on the situation and patient's agenda, will intermittently express SI. This expression however does not mean patient is in imminent risk for intentionally harming them-self. Rather patients predominant risk is due to their continued struggles with substance abuse and the resulting, associated unsafe behaviors and emotions. Plan: Three day notice Q 15 minute checks increase to venlafaxine ER 75 mg; will titrate naltrexone 50mg as MAT for alcohol and opioid cravings -will get lfts Phenobarbital taper Will continue clonazepam 2 mg daily with 1 mg p.r.n. as long as patient is not overly sedated Increase thiamine to [address] 08/23: no changes today - patient seeking more Thorazine will monitor. 08/24: patient now wants to discuss switching Thorazine to an alternative medication. Dishcharge planning underway for Monday Patient educated on: diagnosis and medication risk/benefits Informed Consent: understands Reason for continued inpatient stay Substantial Risk for: harm to self and rapid decompensation Time Spent With Patient Time: Total time managing care of this patient today __15__ minutes.
[2025-08-25 07:54] VITALS: BP 105/68; PULSE 58; RESP 17; TEMP 35.3; O2SAT 98
[2025-08-25] MEDS: Nicotine 21 MG PATCH.TD24 TRANSDERMA (08:19)
[2025-08-25] MEDS: Venlafaxine HCl ER 75 MG CAP.ER.24H PO (08:19)
[2025-08-25] MEDS: Nicotine Polacrilex Lozenge 4 MG LOZENGE BUCCAL ×5 (08:25→21:03)
--- NOTE | 2025-08-25 10:05 | HO.PSYCHPN ---
Subjective Subjective Date of Service: 08/25/25 Reason For Visit: SI Interim History: met with patient; discussed with team; reviewed chart Patient reports they is feeling better; says maybe it is because of the venlafaxine and agrees to continue. Patient says Thorazine seemed helpful at 1st but now it is making them just feel tired so that do not want to take it anymore. Patient decided does not want to go to an outpatient program. Instead, patient reports they got their aunt to agree to take them in however aunt wants them to be on medications for another week before doing so. Patient says that already has a job coach/job developer and that will be enough Reviewed LFTs which are mildly elevated but stable; discussed them in context with naltrexone had patient agrees that since this medication helps reduce alcohol cravings, the benefit is worth the risk Patient reports there was past concern he was in process of potentially developing fatty liver disease after ultrasound Mental Status Exam Mental Status Exam Narrative: Pt is alert and oriented; behavior is organized in behavioral control, intermittently manipulative, calm; patient is not in distress; dressed in casual attire, tattoos, long fingernails, facial rings, unkempt; mood is described as ok and affect congruent; eye contact appropriate; Speech is normal rate, volume and prosody; no psychomotor agitation/retardation present; thought process is organized and goal directed; Thought content is on tx, discharge, psychosocial stressors; otherwise pertinent to relevant topics and without any delusional content, paranoid ideations or grandiosity; denies any SI/HI. Denies AVH and there is no evidence of perceptual disturbance. Patients insight and judgment fair. Diagnostics Vital Signs (24Hr): Vital Signs - 24 hr 08/24/25 19:53 08/25/25 07:54 Temperature 97.7 F 95.5 F L Pulse Rate 85 58 Respiratory Rate 15 17 Blood Pressure 117/61 105/68 Pulse Oximetry 96 98 Oxygen Delivery Method Room Air BMI result Body Mass Index 27.2 Labs 08/16/25 19:13 08/20/25 08:17 Labs: Laboratory Results - last 48 hr 08/24/25 08:22 Total Bilirubin 0.4 Direct Bilirubin 0.2 AST 41 H ALT 114 H Alkaline Phosphatase 55 Total Protein 6.4 L Albumin 4.2 Medications Medications Current Medications Acetaminophen (Acetaminophen 325 Mg Tablet) 650 mg PO Q6H PRN PRN Reason: Headache/Pain, Scale 1-10 Last Admin: 08/18/25 18:00 Dose: 650 mg Al Hydroxide/Mg Hydroxide (Magnesium Hydrox/Alum Hydrox 30 Ml Oral.Susp) 30 ml PO Q6H PRN PRN Reason: Heartburn/Nausea Chlorpromazine HCl (Chlorpromazine Hcl 25 Mg Tablet) 75 mg PO TID PRN PRN Reason: moderate anxiety Last Admin: 08/25/25 09:33 Dose: 75 mg Clonazepam (Clonazepam 1 Mg Tablet) 2 mg PO DAILY [facility] Last Admin: 08/25/25 08:18 Dose: 2 mg Clonazepam (Clonazepam 1 Mg Tablet) 1 mg PO DAILY PRN PRN Reason: severe anxiety Last Admin: 08/24/25 12:08 Dose: 1 mg Cyanocobalamin (Cyanocobalamin (Vitamin B-12) 1,000 Mcg Tablet) 1,000 mcg PO DAILY [facility] Last Admin: 08/25/25 08:17 Dose: 1,000 mcg Diphenhydramine HCl (Diphenhydramine Hcl 25 Mg Capsule) 50 mg PO BEDTIME PRN PRN Reason: insomnia Last Admin: 08/24/25 21:23 Dose: 50 mg Famotidine (Famotidine 20 Mg Tablet) 20 mg PO BID PRN PRN Reason: GERD Finasteride (Finasteride 5 Mg Tablet) 1.25 mg PO DAILY [facility] Last Admin: 08/25/25 08:18 Dose: 1.25 mg Folic Acid (Folic Acid 1 Mg Tablet) 1 mg PO DAILY [facility] Last Admin: 08/25/25 08:19 Dose: 1 mg Hydroxyzine HCl (Hydroxyzine Hcl 25 Mg Tablet) 25 mg PO Q6H PRN PRN Reason: mild anxiety Last Admin: 08/24/25 21:24 Dose: 25 mg Magnesium Hydroxide (Milk Of Magnesia 30 Ml Oral.Susp) 30 ml PO DAILY PRN PRN Reason: Constipation Minoxidil (Minoxidil 2.5 Mg Tablet) 1.25 mg PO DAILY [facility] Last Admin: 08/25/25 08:18 Dose: 1.25 mg Naltrexone HCl (Naltrexone Hcl 50 Mg Tablet) 50 mg PO DAILY [facility] Last Admin: 08/25/25 08:18 Dose: 50 mg Nicotine (Nicotine 21 Mg Patch.Td24) 21 mg TRANSDERMA DAILY PRN PRN Reason: nicotine craving Last Admin: 08/25/25 08:19 Dose: 21 mg Nicotine Polacrilex (Nicotine Polacrilex Lozenge 4 Mg Lozenge) 4 mg BUCCAL Q2H PRN PRN Reason: Nicotine Cravings Last Admin: 08/25/25 08:25 Dose: 4 mg Ondansetron HCl (Ondansetron Odt 4 Mg Tab.Rapdis) 4 mg TRANSLINGU Q6H PRN PRN Reason: Nausea and Vomiting Last Admin: 08/18/25 08:55 Dose: 4 mg Pharmacy Consult (Consult Rx Etoh Phenob Im/Po) 1 each MISCELLANE ONCE PRN; Protocol PRN Reason: Consult order Thiamine HCl (Thiamine Hcl 100 Mg Tablet) 200 mg PO DAILY [facility] Last Admin: 08/25/25 08:17 Dose: 200 mg Trazodone HCl (Trazodone Hcl 100 Mg Tablet) 100 mg PO BEDTIME MRX1 PRN PRN Reason: Insomnia Last Admin: 08/24/25 23:35 Dose: 100 mg Venlafaxine HCl (Venlafaxine Hcl Er 75 Mg Cap.Er.24h) 75 mg PO DAILY [facility] Last Admin: 08/25/25 08:19 Dose: 75 mg Allergies Allergies Allergy/AdvReac Type Severity Reaction Status Date / Time Opioids - Morphine Analogues Allergy Unknown Verified 08/16/25 18:43 Penicillins Allergy Unknown Verified 08/16/25 18:43 Assessment & Plan Assessment & Plan (1) MDD (major depressive disorder), recurrent severe, without psychosis: Status: Acute Code(s): F33.2 - Major depressive disorder, recurrent severe without psychotic features (2) PTSD (post-traumatic stress disorder): Status: Acute Code(s): F43.10 - Post-traumatic stress disorder, unspecified (3) Alcohol dependence: Status: Acute Code(s): F10.20 - Alcohol dependence, uncomplicated (4) Alcohol withdrawal: Status: Acute Code(s): F10.939 - Alcohol use, unspecified with withdrawal, unspecified (5) Cocaine use disorder: Status: Acute Code(s): F14.10 - Cocaine abuse, uncomplicated (6) Opioid use disorder: Status: Acute Code(s): F11.90 - Opioid use, unspecified, uncomplicated (7) Homeless: Status: Acute Code(s): Z59.00 - Homelessness unspecified Plan HPI: Patient is a 25-year-old, non-binary (they/them) person (biologically male at ) with past medical history of MDD, PTSD, eating disorder, alcohol dependency, cocaine/heroin use disorder who presents for SI in the face of untreated depression, psychosocial stressors and ongoing severe alcoholism. They report ongoing depression and on going alcoholism, drinking a 0.5 gal of vodka a day. Patient reports they fractured their right Humeral head in June after falling down the stairs intoxicated; patient reports going to medical respite during which time had bacteremia and was started on antibiotics and developed a blood clot in the left arm and was started on Xarelto. Patient reports having stopped both medications, mid July,, feeling they did not need them. Patient has been staying at a respite since then, remaining very depressed and drinking daily, hiding the alcohol. They report this past week I was drinking so much, not eating...last week was bad, laying in bed, drinking vodka, not eating or drinking water.. Patient reports they felt suicidal in the sense I did not want to live like that anymore... And had some vague ideas on what they might do but no plan or intent. Patient called 911 asking for help, resulting in this admission. Patient denies history of manic episodes or behaviors; denies AVH. Initially reported to check writer salesperson that they were sober from cocaine and heroin for the past 4 years however it was later found that patient relapsed on both cocaine and heroin this past June. Patient reports history of alcohol withdrawal seizures and delirium tremens. Formulation/clinical reasoning: Patient has longstanding depression that is untreated. Symptoms worsened by ongoing, severe alcohol abuse with intermittent cocaine opioid use. Patient is ambivalent about medications, anxious about weight gain; also ambivalent about substance use treatment. Patient says that SI was only in the context of intoxication and now that they are detoxing, SI is fully resolved. Patient ambivalent about receiving treatment for detox, not wanting to forego clonazepam medication. Patient reports they have been on clonazepam 2 mg daily with an extra 1 mg p.r.n. for several years and wants this continued during detox. Regarding withdrawal: Patient currently withdrawing from alcohol with history of DTs and withdrawal seizures; patient was initially put on both Ativan p.r.n. and clonazepam p.r.n. as well as started on phenobarbital 60 mg b.i.d.. Discussed with hospitalist and pharmacy and will switch to a formal phenobarbital protocol; will start with 7 milligrams/kilogram instead of a higher dose since patient has already received 180 mg of phenobarbital over 10 mg of benzos. Discussed case with nursing will continue CIWA to make sure that withdrawal symptoms are under control; if withdrawal symptoms worsen will transferred to the medical floor. Regarding clot: Patient does not seem to have a clotting disorder and left arm blood clot was due to midline being placed. Patient does not want to be on anticoagulant; stopped antibiotics early however currently afebrile WBC WNL; hospitalist will follow and make recommendations regarding Hospital course: 08/19 Patient overheard talking about fooling the nurses into getting extra clonazepam with tearfulness and exaggerating hand tremors. Patient asking check writer salesperson for discharge saying that they will likely go out and drink alcohol but that is their choice. Push Bench Operator Helper discussed patient presented for SI and then patient said I was lying... I was never suicidal... I know what to say to get admitted but I was homeless and I just wanted a place to sleep at night... (it is check writer salesperson's understanding that patient was at respite prior to this admission). Patient said he does not want to go to groups, finding them not helpful; patient refuses MAT or substance use programs instead wanting to work out sobriety on their own... And that they are not ready to stop drinking. After more discussion about patient's depression patient said perhaps they were willing to start an antidepressant medication and check writer salesperson again reviewed Wellbutrin and venlafaxine. Patient said they would think about it -patient's withdrawal under control with CIWA scores adequately treated by phenobarbital -borderline treats emerging -patient continues to deny any SI; it is likely patient is getting close to or is already back to baseline. Hopefully patient will consider antidepressant medication 08/20 After much ambivalence about what patient wanted to do, they concluded that they should remain on the unit, starting antidepressant medication and trying to pursue sobriety. Patient found out today that his aunt refuses to let him returned to live with her until he is been in treatment for a month. Patient denies any SI at all and says he does want to stop drinking. Push Bench Operator Helper reviewed again risks/side effects of medications including venlafaxine and patient wanted to start today. -team considered section 35 however patient is now wanting treatment 08/21 Patient found to have absconded it with a vape out of their backpack and hiding on their person. When confronted patient acknowledged it, pulled it out of pocked and gave it up (patient took it the day before). Patient then said they were lying about lying regarding his suicidality and that they worried if discharged today patient might harm themselves (prior to today, patient consistently denied any SI, saying they fabricated SI just to get admitted and they were safe for discharge, planning to stay at their aunt's. Either last night or this morning patient learned they would not be allowed to stay at aunt's house post discharge...). Patient said that if they went to a CSS they think they would just leave early and harm themself; pt said they have left every CSS within a couple days. Patient has said numerous untruths during this admission, contradicting themself, changing the story based on the situation... Patient acknowledged this; when check writer salesperson asked how can anyone know when patient is telling the truth patient acknowledged I do not know.... Push Bench Operator Helper discussed the correlation between being truthful and pursuing sobriety with which pt agreed. (on admission to the unit, patient very clearly said they had been sober from opiates and cocaine for years, giving specific dates and proud of upcoming anniversary; however, on admission, patient told ED staff they had relapsed recently with cocaine/heroin and when patient admitted to [facility] in June, acknowledged relapse at that time as well; to check writer salesperson the day before patient wanted to discharge and said they really liked AA and would go consistently if allowed to discharge, saying at one point they had been going consistently to AA meetings in [place]; however, the next day upon learning patient can not stay at his aunt's post discharge, patient said they had never been to AA more than once and left after a few minutes feeling uncomfortable; Patient overheard telling a peer that they manipulated nursing, exaggerating withdrawal symptoms to get extra benzos; patient told a nurse that if they did not get more benzos they would, in retaliation, start telling other patients that their medications are being tampered with, specifically to make other patients paranoid about medications...). Patient shared that due to history of trauma there is much anxiety about going to programs with men or having to have male roommates. But that they would be open to going to a program that was either all female or predominantly transgender patients. In discussion patient shared that they were sober (or more so) for about a year while in college, during this time in a good mood, productive and successful. Patient said being on naltrexone had helped with sobriety in the past and wants to get back on it. Patient also decided to start antidepressant Effexor preferring this over Wellbutrin after reviewing risks/side effects profile. Impression: Patient is at baseline. Patient is an unreliable historian. Patient changes their story, history or current symptoms based on the situation and what suits their agenda (which patient grudgingly admits). Push Bench Operator Helper acknowledges that this has been a survival tool, born out of history of trauma and which patient both consciously and unconsciously employs. For this to change patient, patient will need to remain sober and in therapy for long enough to understand how this survival tool is now significantly impeding their treatment and stability. At baseline, patient is emotionally reactive and depending on the situation and patient's agenda, will intermittently express SI. This expression however does not mean patient is in imminent risk for intentionally harming them-self. Rather patients predominant risk is due to their continued struggles with substance abuse and the resulting, associated unsafe behaviors and emotions. 08/23: no changes today - patient seeking more Thorazine will monitor. 08/24: patient now wants to discuss switching Thorazine to an alternative medication. Dishcharge planning underway for Saturday 08/25 Patient reports they is feeling better; says maybe it is because of the venlafaxine and agrees to continue. Patient says Thorazine seemed helpful at but now it is making them just feel tired so that do not want to take it anymore. Patient decided does not want to go to an outpatient program. Instead, patient reports they got their aunt to agree to take them in however aunt wants them to be on medications for another week before doing so. Patient says that already has a job coach/job developer and that will be enough Reviewed LFTs which are mildly elevated but stable; discussed them in context with naltrexone had patient agrees that since this medication helps reduce alcohol cravings, the benefit is worth the risk Patient reports there was past concern he was in process of potentially developing fatty liver disease after ultrasound Plan: Three day notice Q 15 minute checks venlafaxine ER 75 mg; will titrate naltrexone 50mg as MAT for alcohol and opioid cravings -will get lfts Phenobarbital taper Will continue clonazepam 2 mg daily with 1 mg p.r.n. as long as patient is not overly sedated Increase thiamine to [address] Patient educated on: diagnosis, medication risk/benefits, substance abuse, therapeutic strategies and medical condition Informed Consent: understands Reason for continued inpatient stay Substantial Risk for: stable for discharge Time Spent With Patient Time: Total time managing care of this patient today ____ minutes.
[2025-08-25 20:00] VITALS: BP 131/62; PULSE 96; RESP 20; TEMP 36.2; O2SAT 96
[2025-08-26] MEDS: Nicotine Polacrilex Lozenge 4 MG LOZENGE BUCCAL ×5 (04:26→21:05)
[2025-08-26 08:00] VITALS: BP 113/55; PULSE 81; RESP 20; TEMP 35.7; O2SAT 96
[2025-08-26] MEDS: Nicotine 21 MG PATCH.TD24 TRANSDERMA (08:33)
[2025-08-26] MEDS: Venlafaxine HCl ER 75 MG CAP.ER.24H PO (08:34)
--- NOTE | 2025-08-26 09:45 | P.PNPSI_ITS ---
Subjective Subjective Date of Service: 08/26/25 Reason For Visit: SI Interim History: met with patient; discussed with team Patient remains with mood doing better and feels depression is much less and anxiety under control; Patient tolerating medications and continues to think venlafaxine has been helping with depression. Eating and sleeping well. Plans to discharge to his aunts who gave the okay for them to return there tomorrow. Patient on naltrexone which they say helps with alcohol cravings; otherwise patient does not want any further help with substance abuse treatment. slate worker talked with patient's thought who confirmed the patient can stay there. She reported that the last time she she let him stay there, she had to kick Igor out; they refused to leave and claimed squatters rights and the police said they couldn't make them leave. Once patient finally left, they harassed her to the point she had to block patient's number and all social media. Despite this she is willing to give patient another chance. Mental Status Exam Mental Status Exam Narrative: Pt is alert and oriented; behavior is cooperative, friendly and calm; socializing with peers; patient is not in distress; dressed in casual attire with unkempt hair, tattoos face/neck, nose rings cervical and adequate hygiene and grooming; mood is described as good and affect congruent; eye contact appropriate; Speech is normal rate, volume and prosody and not pressured; no psychomotor agitation/retardation present; thought process is organized and goal directed; Thought content is on tx; otherwise pertinent to relevant topics and without any delusional content, paranoid ideations or grandiosity; denies any SI/HI. Denies AVH and there is no evidence of perceptual disturbance. Patients insight and judgment are fair. Diagnostics Vital Signs (24Hr): Vital Signs - 24 hr 08/25/25 20:00 08/26/25 08:00 Temperature 97.2 F 96.3 F L Pulse Rate 96 81 Respiratory Rate 20 20 Blood Pressure 131/62 113/55 L Pulse Oximetry 96 96 Oxygen Delivery Method Room Air Room Air BMI result Body Mass Index 27.2 Labs 08/16/25 19:13 08/20/25 08:17 Medications Medications Current Medications Acetaminophen (Acetaminophen 325 Mg Tablet) 650 mg PO Q6H PRN PRN Reason: Headache/Pain, Scale 1-10 Last Admin: 08/18/25 18:00 Dose: 650 mg Al Hydroxide/Mg Hydroxide (Magnesium Hydrox/Alum Hydrox 30 Ml Oral.Susp) 30 ml PO Q6H PRN PRN Reason: Heartburn/Nausea Chlorpromazine HCl (Chlorpromazine Hcl 25 Mg Tablet) 75 mg PO TID PRN PRN Reason: moderate anxiety Last Admin: 08/26/25 08:54 Dose: 75 mg Clonazepam (Clonazepam 1 Mg Tablet) 2 mg PO DAILY [facility] Last Admin: 08/26/25 08:34 Dose: 2 mg Clonazepam (Clonazepam 1 Mg Tablet) 1 mg PO DAILY PRN PRN Reason: severe anxiety Last Admin: 08/26/25 05:31 Dose: 1 mg Cyanocobalamin (Cyanocobalamin (Vitamin B-12) 1,000 Mcg Tablet) 1,000 mcg PO DAILY [facility] Last Admin: 08/26/25 08:34 Dose: 1,000 mcg Diphenhydramine HCl (Diphenhydramine Hcl 25 Mg Capsule) 50 mg PO BEDTIME PRN PRN Reason: insomnia Last Admin: 08/25/25 21:03 Dose: 50 mg Famotidine (Famotidine 20 Mg Tablet) 20 mg PO BID PRN PRN Reason: GERD Finasteride (Finasteride 5 Mg Tablet) 1.25 mg PO DAILY [facility] Last Admin: 08/26/25 08:35 Dose: 1.25 mg Folic Acid (Folic Acid 1 Mg Tablet) 1 mg PO DAILY [facility] Last Admin: 08/26/25 08:34 Dose: 1 mg Hydroxyzine HCl (Hydroxyzine Hcl 25 Mg Tablet) 25 mg PO Q6H PRN PRN Reason: mild anxiety Last Admin: 08/26/25 04:26 Dose: 25 mg Magnesium Hydroxide (Milk Of Magnesia 30 Ml Oral.Susp) 30 ml PO DAILY PRN PRN Reason: Constipation Minoxidil (Minoxidil 2.5 Mg Tablet) 1.25 mg PO DAILY [facility] Last Admin: 08/26/25 08:35 Dose: 1.25 mg Naltrexone HCl (Naltrexone Hcl 50 Mg Tablet) 50 mg PO DAILY [facility] Last Admin: 08/26/25 08:35 Dose: 50 mg Nicotine (Nicotine 21 Mg Patch.Td24) 21 mg TRANSDERMA DAILY PRN PRN Reason: nicotine craving Last Admin: 08/26/25 08:33 Dose: 21 mg Nicotine Polacrilex (Nicotine Polacrilex Lozenge 4 Mg Lozenge) 4 mg BUCCAL Q2H PRN PRN Reason: Nicotine Cravings Last Admin: 08/26/25 08:34 Dose: 4 mg Ondansetron HCl (Ondansetron Odt 4 Mg Tab.Rapdis) 4 mg TRANSLINGU Q6H PRN PRN Reason: Nausea and Vomiting Last Admin: 08/18/25 08:55 Dose: 4 mg Pharmacy Consult (Consult Rx Etoh Phenob Im/Po) 1 each MISCELLANE ONCE PRN; Protocol PRN Reason: Consult order Thiamine HCl (Thiamine Hcl 100 Mg Tablet) 200 mg PO DAILY [facility] Last Admin: 08/26/25 08:48 Dose: 200 mg Trazodone HCl (Trazodone Hcl 100 Mg Tablet) 100 mg PO BEDTIME MRX1 PRN PRN Reason: Insomnia Last Admin: 08/25/25 20:52 Dose: 100 mg Venlafaxine HCl (Venlafaxine Hcl Er 75 Mg Cap.Er.24h) 75 mg PO DAILY [facility] Last Admin: 08/26/25 08:34 Dose: 75 mg Allergies Allergies Allergy/AdvReac Type Severity Reaction Status Date / Time Opioids - Morphine Analogues Allergy Unknown Verified 08/16/25 18:43 Penicillins Allergy Unknown Verified 08/16/25 18:43 Assessment & Plan Assessment & Plan (1) MDD (major depressive disorder), recurrent severe, without psychosis: Status: Acute Code(s): F33.2 - Major depressive disorder, recurrent severe without psychotic features (2) PTSD (post-traumatic stress disorder): Status: Acute Code(s): F43.10 - Post-traumatic stress disorder, unspecified (3) Alcohol dependence: Status: Acute Code(s): F10.20 - Alcohol dependence, uncomplicated (4) Alcohol withdrawal: Status: Acute Code(s): F10.939 - Alcohol use, unspecified with withdrawal, unspecified (5) Cocaine use disorder: Status: Acute Code(s): F14.10 - Cocaine abuse, uncomplicated (6) Opioid use disorder: Status: Acute Code(s): F11.90 - Opioid use, unspecified, uncomplicated (7) Homeless: Status: Acute Code(s): Z59.00 - Homelessness unspecified (8) Borderline personality disorder: Status: Suspected Code(s): F60.3 - Borderline personality disorder Plan HPI: Patient is a 25-year-old, non-binary (they/them) person (biologically male at ) with past medical history of MDD, PTSD, eating disorder, alcohol dependency, cocaine/heroin use disorder who presents for SI in the face of untreated depression, psychosocial stressors and ongoing severe alcoholism. They report ongoing depression and on going alcoholism, drinking a 0.5 gal of vodka a day. Patient reports they fractured their right Humeral head in June after falling down the stairs intoxicated; patient reports going to medical respite during which time had bacteremia and was started on antibiotics and developed a blood clot in the left arm and was started on Xarelto. Patient reports having stopped both medications, mid July,, feeling they did not need them. Patient has been staying at a respite since then, remaining very depressed and drinking daily, hiding the alcohol. They report this past week I was drinking so much, not eating...last week was bad, laying in bed, drinking vodka, not eating or drinking water.. Patient reports they felt suicidal in the sense I did not want to live like that anymore... And had some vague ideas on what they might do but no plan or intent. Patient called 911 asking for help, resulting in this admission. Patient denies history of manic episodes or behaviors; denies AVH. Initially reported to underwriter that they were sober from cocaine and heroin for the past 4 years however it was later found that patient relapsed on both cocaine and heroin this past June. Patient reports history of alcohol withdrawal seizures and delirium tremens. Formulation/clinical reasoning: Patient has longstanding depression that is untreated. Symptoms worsened by ongoing, severe alcohol abuse with intermittent cocaine opioid use. Patient is ambivalent about medications, anxious about weight gain; also ambivalent about substance use treatment. Patient says that SI was only in the context of intoxication and now that they are detoxing, SI is fully resolved. Patient ambivalent about receiving treatment for detox, not wanting to forego clonazepam medication. Patient reports they have been on clonazepam 2 mg daily with an extra 1 mg p.r.n. for several years and wants this continued during detox. Regarding withdrawal: Patient currently withdrawing from alcohol with history of DTs and withdrawal seizures; patient was initially put on both Ativan p.r.n. and clonazepam p.r.n. as well as started on phenobarbital 60 mg b.i.d.. Discussed with hospitalist and pharmacy and will switch to a formal phenobarbital protocol; will start with 7 milligrams/kilogram instead of a higher dose since patient has already received 180 mg of phenobarbital over 10 mg of benzos. Discussed case with nursing will continue CIWA to make sure that withdrawal symptoms are under control; if withdrawal symptoms worsen will transferred to the medical floor. Regarding clot: Patient does not seem to have a clotting disorder and left arm blood clot was due to midline being placed. Patient does not want to be on anticoagulant; stopped antibiotics early however currently afebrile WBC WNL; hospitalist will follow and make recommendations regarding Hospital course: 08/19 Patient overheard talking about fooling the nurses into getting extra clonazepam with tearfulness and exaggerating hand tremors. Patient asking underwriter for discharge saying that they will likely go out and drink alcohol but that is their choice. Dressmaker Or Tailor discussed patient presented for SI and then patient said I was lying... I was never suicidal... I know what to say to get admitted but I was homeless and I just wanted a place to sleep at night... (it is underwriter's understanding that patient was at respite prior to this admission). Patient said he does not want to go to groups, finding them not helpful; patient refuses MAT or substance use programs instead wanting to work out sobriety on their own... And that they are not ready to stop drinking. After more discussion about patient's depression patient said perhaps they were willing to start an antidepressant medication and underwriter again reviewed Wellbutrin and venlafaxine. Patient said they would think about it -patient's withdrawal under control with CIWA scores adequately treated by phenobarbital -borderline treats emerging -patient continues to deny any SI; it is likely patient is getting close to or is already back to baseline. Hopefully patient will consider antidepressant medication 08/20 After much ambivalence about what patient wanted to do, they concluded that they should remain on the unit, starting antidepressant medication and trying to pursue sobriety. Patient found out today that his aunt refuses to let him returned to live with her until he is been in treatment for a month. Patient denies any SI at all and says he does want to stop drinking. Dressmaker Or Tailor reviewed again risks/side effects of medications including venlafaxine and patient wanted to start today. -team considered section 35 however patient is now wanting treatment 08/21 Patient found to have absconded it with a vape out of their backpack and hiding on their person. When confronted patient acknowledged it, pulled it out of pocked and gave it up (patient took it the day before). Patient then said they were lying about lying regarding his suicidality and that they worried if discharged today patient might harm themselves (prior to today, patient consistently denied any SI, saying they fabricated SI just to get admitted and they were safe for discharge, planning to stay at their aunt's. Either last night or this morning patient learned they would not be allowed to stay at aunt's house post discharge...). Patient said that if they went to a CSS they think they would just leave early and harm themself; pt said they have left every CSS within a couple days. Patient has said numerous untruths during this admission, contradicting themself, changing the story based on the situation... Patient acknowledged this; when underwriter asked how can anyone know when patient is telling the truth patient acknowledged I do not know.... Dressmaker Or Tailor discussed the correlation between being truthful and pursuing sobriety with which pt agreed. (on admission to the unit, patient very clearly said they had been sober from opiates and cocaine for years, giving specific dates and proud of upcoming anniversary; however, on admission, patient told ED staff they had relapsed recently with cocaine/heroin and when patient admitted to [facility] in June, acknowledged relapse at that time as well; to underwriter the day before patient wanted to discharge and said they really liked AA and would go consistently if allowed to discharge, saying at one point they had been going consistently to AA meetings in [place]; however, the next day upon learning patient can not stay at his aunt's post discharge, patient said they had never been to AA more than once and left after a few minutes feeling uncomfortable; Patient overheard telling a peer that they manipulated nursing, exaggerating withdrawal symptoms to get extra benzos; patient told a nurse that if they did not get more benzos they would, in retaliation, start telling other patients that their medications are being tampered with, specifically to make other patients paranoid about medications...). Patient shared that due to history of trauma there is much anxiety about going to programs with men or having to have male roommates. But that they would be open to going to a program that was either all female or predominantly transgender patients. In discussion patient shared that they were sober (or more so) for about a year while in college, during this time in a good mood, productive and successful. Patient said being on naltrexone had helped with sobriety in the past and wants to get back on it. Patient also decided to start antidepressant Effexor preferring this over Wellbutrin after reviewing risks/side effects profile. Impression: Patient is at baseline. Patient is an unreliable historian. Patient changes their story, history or current symptoms based on the situation and what suits their agenda (which patient grudgingly admits). Dressmaker Or Tailor acknowledges that this has been a survival tool, born out of history of trauma and which patient both consciously and unconsciously employs. For this to change patient, patient will need to remain sober and in therapy for long enough to understand how this survival tool is now significantly impeding their treatment and stability. At baseline, patient is emotionally reactive and depending on the situation and patient's agenda, will intermittently express SI. This expression however does not mean patient is in imminent risk for intentionally harming them-self. Rather patients predominant risk is due to their continued struggles with substance abuse and the resulting, associated unsafe behaviors and emotions. 08/23: no changes today - patient seeking more Thorazine will monitor. 08/24: patient now wants to discuss switching Thorazine to an alternative medication. Dishcharge planning underway for Saturday 08/25 Patient reports they is feeling better; says maybe it is because of the venlafaxine and agrees to continue. Patient says Thorazine seemed helpful at but now it is making them just feel tired so that do not want to take it anymore. Patient decided does not want to go to an outpatient program. Instead, patient reports they got their aunt to agree to take them in however aunt wants them to be on medications for another week before doing so. Patient says that already has a head athletic trainer/strength coach and that will be enough Reviewed LFTs which are mildly elevated but stable; discussed them in context with naltrexone had patient agrees that since this medication helps reduce alcohol cravings, the benefit is worth the risk Patient reports there was past concern he was in process of potentially developing fatty liver disease after ultrasound 08/26 Patient remains with mood doing better and feels depression is much less and anxiety under control; Patient tolerating medications and continues to think venlafaxine has been helping with depression. Eating and sleeping well. Plans to discharge to his aunts who gave the okay for them to return there tomorrow. Patient on naltrexone which they say helps with alcohol cravings; otherwise patient does not want any further help with substance abuse treatment. slate worker talked with patient's thought who confirmed the patient can stay there. She reported that the last time she she let him stay there, she had to kick Igor out; they refused to leave and claimed squatters rights and the police said they couldn't make them leave. Once patient finally left, they harassed her to the point she had to block patient's number and all social media. Despite this she is willing to give patient another chance. -given this history, patient's presentation throughout this admission, strongly suspect BPD Impression: Patient is at baseline. Mood and anxiety are improved and patient is on an antidepressant they are tolerated and seems to be helping. Patient also on MAT. While patient remains vulnerable to relapse and decompensation, this is a chronic struggle, 1 with which patient is well aware and will not resolve with longer stay on inpatient unit, but rather requires consistent outpatient sobriety and commitment to treatment; at this point patient remains ambivalent about pursuing sobriety. Patient is not in imminent risk for harm herself or others; 3 days, and due and patient did appropriate to return to the community for treatment. Request for discharge was honored. Plan: Three day notice Q 15 minute checks venlafaxine ER 75 mg; will titrate naltrexone 50mg as MAT for alcohol and opioid cravings -will get lfts Phenobarbital taper Will continue clonazepam 2 mg daily with 1 mg p.r.n. as long as patient is not overly sedated Increase thiamine to [address] Patient educated on: diagnosis, medication risk/benefits, substance abuse and therapeutic strategies Informed Consent: understands Reason for continued inpatient stay Substantial Risk for: stable for discharge Time Spent With Patient Time: Total time managing care of this patient today ____ minutes.
[2025-08-26 20:00] VITALS: BP 118/70; PULSE 104; RESP 96; TEMP 35.4; O2SAT 96
[2025-08-27] MEDS: Nicotine Polacrilex Lozenge 4 MG LOZENGE BUCCAL ×3 (04:12→10:25)
[2025-08-27 08:00] VITALS: BP 111/58; PULSE 60; RESP 16; TEMP 36.4; O2SAT 96
[2025-08-27] MEDS: Naloxone HCl Nasal TAKE HOME 4 MG SPRAY 8 MG NOSTRILALT (08:19)
[2025-08-27] MEDS: Venlafaxine HCl ER 75 MG CAP.ER.24H PO (08:21)
--- NOTE | 2025-08-27 09:29 | P.DS_ITS ---
DS: Providers Provider Date of Service: 08/27/25 Date of admission: 08/17/25 10:46 Date of discharge: 08/27/25 Primary care physician: Unknown Physician Attending physician on admission: Mickey Reagan Consults: 08/17/25 15:47 Addiction Medicine Provider Routine Consulting Provider: Addiction Covering Reason for consultation: drinks 1 gallon of vodka daily and takes prescribed clonopin 08/18/25 12:00 Consult to Hospitalist Routine Comment: hx DT's/withdrawal seizures Consulting Provider: [facility] [place] Hospitalists Reason For Exam: severe etoh W/dr;on Phenbarb, clonazepa,ativan? Attending physician on discharge: Mickey Reagan DS: Diagnosis Discharge Diagnosis (1) MDD (major depressive disorder), recurrent severe, without psychosis: Status: Acute (2) PTSD (post-traumatic stress disorder): Status: Acute (3) Alcohol dependence: Status: Acute (4) Alcohol withdrawal: Status: Acute (5) Cocaine use disorder: Status: Acute (6) Opioid use disorder: Status: Acute (7) Homeless: Status: Acute (8) Borderline personality disorder: Status: Suspected DS: Medications Discharge Medications Home Medications: Previous Rx's ?Medication ?Instructions ?Recorded finasteride 5 mg tablet 1.25 mg (1/4 x 5 mg) PO CARLOS Y 30 08/26/25 days #8 tabs hydroxyzine HCl 25 mg tablet 25 mg PO Q6H PRN mild anx iety 30 08/26/25 days #60 tabs minoxidil 2.5 mg tablet 1.25 mg (1/2 x 2.5 mg) PO DA KRISTI 30 08/26/25 days #15 tabs naltrexone 50 mg tablet 50 mg PO DAILY 30 days #30 t abs 08/26/25 trazodone 100 mg tablet 100 mg PO BEDTIME PRN Insomn ia 30 08/26/25 days #30 tabs venlafaxine 75 mg capsule,extended 75 mg PO DAILY 30 d ays #30 caps 08/26/25 release 24 hr clonazepam 1 mg tablet 1 mg PO TID PRN severe anxie ty 7 08/27/25 days #21 tabs diphenhydramine HCl 50 mg capsule 50 mg PO BEDTIME PRN sleep 30 days 08/27/25 #30 caps nicotine (polacrilex) 4 mg buccal 4 mg buccal Q2H PRN Nicotine 08/27/25 lozenge Cravings 30 days #81 ea Mental Status Exam Mental Status Exam Narrative: Pt is alert and oriented; behavior is cooperative, friendly and calm; socializing with peers; patient is not in distress; dressed in casual attire with unkempt hair, tattoos face/neck, nose rings cervical and adequate hygiene and grooming; mood is described as anxious about my phone. Affect overall bright and calm; eye contact appropriate; Speech is normal rate, volume and prosody and not pressured; no psychomotor agitation/retardation present; thought process is organized and goal directed; Thought content is on tx; otherwise pertinent to relevant topics and without any delusional content, paranoid ideations or grandiosity; denies any SI/HI. Denies AVH and there is no evidence of perceptual disturbance. Patients insight and judgment are fair. Data Data Completed and Pending Completed studies during hospitalization [Text1]: 08/20/25 08/24/25 08:17 08:22 Total Bilirubin 0.4 Direct Bilirubin 0.2 AST 41 H ALT 114 H Alkaline Phosphatase 55 Total Protein 6.4 L Albumin 4.2 Homocysteine 12.2 08/17/25 06:15 Urine clean catch - Clean Catch Midstream Urine Culture - Final DS: Summary Hospital Course Hospital Course: HPI: Patient is a 25-year-old, non-binary (they/them) person (biologically male at ) with past medical history of MDD, PTSD, eating disorder, alcohol dependency, cocaine/heroin use disorder who presents for SI in the face of untreated depression, psychosocial stressors and ongoing severe alcoholism. They report ongoing depression and on going alcoholism, drinking a 0.5 gal of vodka a day. Patient reports they fractured their right Humeral head in June after falling down the stairs intoxicated; patient reports going to medical respite during which time had bacteremia and was started on antibiotics and developed a blood clot in the left arm and was started on Xarelto. Patient reports having stopped both medications, mid July,, feeling they did not need them. Patient has been staying at a respite since then, remaining very depressed and drinking daily, hiding the alcohol. They report this past week I was drinking so much, not eating...last week was bad, laying in bed, drinking vodka, not eating or drinking water.. Patient reports they felt suicidal in the sense I did not want to live like that anymore... And had some vague ideas on what they might do but no plan or intent. Patient called 911 asking for h elp, resulting in this admission. Patient denies history of manic episodes or behaviors; denies AVH. Initially reported to designer writer that they were sober from cocaine and heroin for the past 4 years however it was later found that patient relapsed on both cocaine and heroin this past June. Patient reports history of alcohol withdrawal seizures and delirium tremens. Formulation/clinical reasoning: Patient has longstanding depression that is untreated. Symptoms worsened by ongoing, severe alcohol abuse with intermittent cocaine opioid use. Patient is ambivalent about medications, anxious about weight gain; also ambivalent about substance use treatment. Patient says that SI was only in the context of intoxication and now that they are detoxing, SI is fully resolved. Patient ambivalent about receiving treatment for detox, not wanting to forego clonazepam medication. Patient reports they have been on clonazepam 2 mg daily with an extra 1 mg p.r.n. for several years and wants this continued during detox. Regarding withdrawal: Patient currently withdrawing from alcohol with history of DTs and withdrawal seizures; patient was initially put on both Ativan p.r.n. and clonazepam p.r.n. as well as started on phenobarbital 60 mg b.i.d.. Discussed with hospitalist and pharmacy and will switch to a formal phenobarbital protocol; will start with 7 milligrams/kilogram instead of a higher dose since patient has already received 180 mg of phenobarbital over 10 mg of benzos. Discussed case with nursing will continue CIWA to make sure that withdrawal symptoms are under control; if withdrawal symptoms worsen will transferred to the medical floor. Regarding clot: Patient does not seem to have a clotting disorder and left arm blood clot was due to midline being placed. Patient stopped both anticoagulant and abx and does not want to be on either (stopped both about 1 month ago); afebrile/WBC wnl; hospitalist agrees pt does not need to restart Hospital course: 08/19 Patient overheard talking about fooling the nurses into getting extra clonazepam with tearfulness and exaggerating hand tremors. Patient asking designer writer for discharge saying that they will likely go out and drink alcohol but that is their choice. Crawler Tractor Operator discussed patient presented for SI and then patient said I was lying... I was never suicidal... I know what to say to get admitted but I was homeless and I just wanted a place to sleep at night... (it is designer writer's understanding that patient was at respite prior to this admission). Patient said he does not want to go to groups, finding them not helpful; patient refuses MAT or substance use programs instead wanting to work out sobriety on their own... And that they are not ready to stop drinking. After more discussion about patient's depression patient said perhaps they were willing to start an antidepressant medication and designer writer again reviewed Wellbutrin and venlafaxine. Patient said they would think about it -patient's withdrawal under control with CIWA scores adequately treated by phenobarbital -borderline treats emerging -patient continues to deny any SI; it is likely patient is getting close to or is already back to baseline. Hopefully patient will consider antidepressant medication 08/20 After much ambivalence about what patient wanted to do, they concluded that they should remain on the unit, starting antidepressant medication and trying to pursue sobriety. Patient found out today that his aunt refuses to let him returned to live with her until he is been in treatment for a month. Patient denies any SI at all and says he does want to stop drinking. Crawler Tractor Operator reviewed again risks/side effects of medications including venlafaxine and patient wanted to start today. -team considered section 35 however patient is now wanting treatment absconded it with a vape 08/21 Patient found to have absconded it with a vape out of their backpack and h iding on their person. When confronted patient acknowledged it, pulled it out of pocked and gave it up (patient took it the day before). Patient then said they were lying about lying regarding his suicidality and that they worried if discharged today patient might harm themselves (prior to today, patient consistently denied any SI, saying they fabricated SI just to get admitted and they were safe for discharge, planning to stay at their aunt's. Either last night or this morning patient learned they would not be allowed to stay at aunt's house post discharge...). Patient said that if they went to a CSS they think they would just leave early and harm themself; pt said they have left every CSS within a couple days. Patient has said numerous untruths during this admission, contradicting themself, changing the story based on the situation... Patient acknowledged this; when designer writer asked how can anyone know when patient is telling the truth patient acknowledged I do not know.... Crawler Tractor Operator discussed the correlation between being truthful and pursuing sobriety with which pt agreed. (on admission to the unit, patient very clearly said they had been sober from opiates and cocaine for years, giving specific dates and proud of upcoming anniversary; however, on admission, patient told ED staff they had relapsed recently with cocaine/heroin and when patient admitted to [facility] in June, acknowledged relapse at that time as well; to designer writer the day before patient wanted to discharge and said they really liked AA and would go consistently if allowed to discharge, saying at one point they had been going consistently to AA meetings in [place]; however, the next day upon learning patient can not stay at his aunt's post discharge, patient said they had never been to AA more than once and left after a few minutes feeling uncomfortable; Patient overheard telling a peer that they manipulated nursing, exaggerating withdrawal symptoms to get extra benzos; patient told a nurse that if they did not get more benzos they would, in retaliation, start telling other patients that their medications are being tampered with, specifically to make other patients paranoid about me dications...). Patient shared that due to history of trauma there is much anxiety about going to programs with men or having to have male roommates. But that they would be open to going to a program that was either all female or predominantly transgender patients. In discussion patient shared that they were sober (or more so) for about a year while in college, during this time in a good mood, productive and successful. Patient said being on naltrexone had helped with sobriety in the past and wants to get back on it. Patient also decided to start antidepressant Effexor preferring this over Wellbutrin after reviewing risks/side effects profile. Impression mid-admission: Patient is at baseline. Patient is an unreliable historian. Patient changes their story, history or current symptoms based on the situation and what suits their agenda (which patient grudgingly admits). Crawler Tractor Operator acknowledges that this has been a survival tool, born out of history of trauma and which patient both consciously and unconsciously employs. For this to change patient, patient will need to remain sober and in therapy for long enough to understand how this survival tool is now significantly impeding their treatment and stability. At baseline, patient is emotionally reactive and depending on the situation and patient's agenda, will intermittently express SI. This expression however does not mean patient is in imminent risk for intentionally harming them-self. Rather patients predominant risk is due to their continued struggles with substance abuse and the resulting, associated unsafe behaviors and emotions. 08/25 Patient reports they is feeling better; says maybe it is because of the venlafaxine and agrees to continue. Patient says Thorazine seemed helpful at 1st but now it is making them just feel tired so that do not want to take it anymore. Patient decided does not want to go to an outpatient program. Instead, patient reports they got their aunt to agree to take them in however aunt wants them to be on medications for another week before doing so. Patient says that already has a community living coach and that will be enough. No SI Reviewed LFTs which are mildly elevated but stable; discussed them in context with naltrexone had patient agrees that since this medication helps reduce alcohol cravings, the benefit is worth the risk Patient reports there was past concern he was in process of potentially developing fatty liver disease after ultrasound 08/26 Patient remains with mood doing better and feels depression is much less and anxiety under control; Patient tolerating medications and continues to think venlafaxine has been helping with depression. Eating and sleeping well. Plans to discharge to his aunts who gave the okay for them to return there tomorrow. Patient on naltrexone which they say helps with alcohol cravings; otherwise patient does not want any further help with substance abuse treatment. garage worker talked with patient's thought who confirmed the patient can stay there. She reported that the last time she she let him stay there, she had to kick Igor out; they refused to leave and claimed squatters rights and the police said they couldn't make them leave. Once patient finally left, they harassed her to the point she had to block patient's number and all social media. Despite this she is willing to give patient another chance. -given this history, patient's presentation throughout this admission, strongly suspect BPD Impression: Patient is at baseline. Mood and anxiety are improved and patient is on an antidepressant they are tolerated and seems to be helping. SI remains resolved. Patient also on MAT. While patient remains vulnerable to relapse and decompensation, this is a chronic struggle, 1 with which patient is well aware and will not resolve with longer stay on inpatient unit, but rather requires consistent outpatient sobriety and commitment to treatment; at this point patient remains ambivalent about pursuing sobriety. Patient is not in imminent risk for harm herself or others; 3 days, and due and patient did appropriate to return to the community for treatment. Request for discharge was honored. Medication: Started venlafaxine ER 75 mg; will titrate Started naltrexone 50mg as MAT for alcohol and opioid cravings continued clonazepam 2 mg daily with 1 mg p.r.n. (on as outpt and taken for years) Time spent discussing smoking cessation with patient: 3 to 10 minutes Status at Discharge Functional status at discharge: independent ambulation Overall status at discharge: patient is back to baseline Time Spent with Patient Time attestation: Total time managing care of this patient today _40___ minutes. Time spent: Greater than 30 minutes Specific discharge activities: met with pt; discussed with team; scripts, charting Discharge Plan Discharge Anticipated Discharge Date/Time: 08/27/25 11:30 Patient Disposition: [facility] Discharge Diagnosis: MDD, recurrent, severe without psychosis, in partial remission Referrals: [facility]: [facility] [Other] - 1 Week Referral Note: You were referred and accepted for assisted placement at [facility] in [place]. If you find you need assisted placement, call the above number at 9:30am to inquire about bed availability and to be placed on their wait list. IOP/Outpatient MH Intake: [facility] (PARKING [facility] ATTEND[facility]) [Other] - 08/28/25 2 :00 pm Referral Note: Intake appointment is with Diana Leblanc, via Zoom. Diana will email you a Zoom link the morning of your appointment; click on link at your appointment time at 2pm. Once you complete the intake, you will be given an intake appointment for their IOP program. IOP is five days a week, three hours a day, virtually. Once you complete IOP, they will assign you to a therapist and schedule you with a psychiatric prescriber within 30 days of your hospital discharge. PCP: Arslan Joya ([facility]) [Other] - 1 Week Referral Note: Per your request, a PCP appointment was not scheduled and you expressed intent to schedule your follow-up appointment on your own after discharge. Please contact your PCP at the above number to schedule follow-up appointment. Fax number was provided [phone] Discharge Medications: New naltrexone 50 mg Tablet 50 mg PO DAILY 30 Days Qty: 30 0RF trazodone 100 mg Tablet 100 mg PO BEDTIME PRN (Reason: Insomnia) 30 Days Qty: 30 0RF venlafaxine 75 mg Capsule,Extended Release 24hr 75 mg PO DAILY 30 Days Qty: 30 0RF hydroxyzine HCl 25 mg Tablet 25 mg PO Q6H PRN (Reason: mild anxiety) 30 Days Qty: 60 0RF diphenhydramine HCl 50 mg capsule 50 mg PO BEDTIME PRN (Reason: sleep) 30 Days Qty: 30 0RF nicotine (polacrilex) 4 mg Lozenge 4 mg buccal Q2H PRN (Reason: Nicotine Cravings) 30 Days Qty: 81 0RF clonazepam 1 mg Tablet 1 mg PO DAILY PRN (Reason: severe anxiety) 7 Days Qty: 7 0RF clonazepam [Klonopin] 2 mg tablet 2 mg PO DAILY 7 Days Qty: 7 0RF Continued minoxidil 2.5 mg tablet 1.25 mg PO DAILY 30 Days Qty: 15 0RF finasteride 5 mg tablet 1.25 mg PO DAILY 30 Days Qty: 8 0RF Changed clonazepam 1 mg Tablet 1 mg PO TID PRN (Reason: severe anxiety) 7 Days Qty: 21 0RF Discontinued clonazepam 2 mg Tablet 2 mg PO NEEDED PRN (Reason: Anxiety) Discharge Orders: Discharge Order (Routine); Ordered 08/27/25 Ordered By: Mickey Reagan Diet: Regular diet Activity on Discharge: As tolerated Stand Alone Forms: Patient Portal Discharge page Print Language: Mozambican Care Plan Goals: Maintain mood and safe behaviors Take medications as prescribed Continue to pursue sobriety Practice coping skills Continue with outpatient providers and reach out to them as needed Health Concerns: Mood stability and behaviors Sobriety Plan of Treatment: Follow up with your PCP, psychiatric provider and other outpatient providers regarding above concerns Take medications as prescribed Assessment: Risk assessment at time of discharge:? Patient was interviewed prior to discharge and found to be fully oriented and without any SI or HI. Patient has improved insight and judgment and wants to continue treatment. Patient is not in imminent risk of harm to self or others and has a safety plan that includes presenting to the closest ER or calling 911 if feeling unsafe.? Patient has been observed closely by nursing and unit staff throughout admission; patient has not engaged in any behaviors that suggest dangerousness to self or others and has demonstrated appropriate behaviors and impulse control
== END 2025-08-27 11:18 | disposition home or self-care (01) | DRG 751 ==
LOC: HO.ED 08-17 13:45 → HO.PM5 08-17 14:20
PROVIDERS: Nurse Practitioner Family; Admitting Provider Nurse Practitioner Psychiatric/Mental Health; Emergency Provider Emergency Medicine Emergency Medical Services; Visit Provider Psychiatry & Neurology Psychiatry
DX: F33.2 Major depressive disorder, recurrent severe without psychotic features (principal); R45.851 Suicidal ideations; Z91.199 Patient's noncompliance with other medical treatment and regimen due to unspecified reason; F17.210 Nicotine dependence, cigarettes, uncomplicated; F10.229 Alcohol dependence with intoxication, unspecified; F10.239 Alcohol dependence with withdrawal, unspecified; S42.251A Displaced fracture of greater tuberosity of right humerus, initial encounter for closed fracture; Y90.8 Blood alcohol level of 240 mg/100 ml or more; Z59.02 Unsheltered homelessness; T45.516A Underdosing of anticoagulants, initial encounter; Z86.72 Personal history of thrombophlebitis; F43.10 Post-traumatic stress disorder, unspecified; F14.10 Cocaine abuse, uncomplicated; F41.1 Generalized anxiety disorder; X58.XXXA Exposure to other specified factors, initial encounter; Z91.52 Personal history of nonsuicidal self-harm; Z79.01 Long term (current) use of anticoagulants; Z79.899 Other long term (current) drug therapy
CPT/HCPCS: 36415; 73030; 80053; 80061; 80076; 80143; 80179; 80307; 81001; 82607; 82746; 83036; 83090; 84439; 84443; 85025; 85610; 87086; 93971; 99285; J2560; S9485

== ENCOUNTER → 2025-08-16 19:33 | Outpatient (BNV) | payer MEDICAID, SELFPAY | PROVIDERS: Emergency Provider Emergency Medicine Emergency Medical Services; Visit Provider Radiology Diagnostic Radiology | DX: S42.301A Unspecified fracture of shaft of humerus, right arm, initial encounter for closed fracture (principal) | CPT/HCPCS: 73030 ==

== ENCOUNTER 2025-08-17 10:46 | Outpatient (BNV) | payer MEDICAID, SELFPAY | END 2025-08-18 18:30 | PROVIDERS: Admitting Provider Nurse Practitioner Psychiatric/Mental Health; Emergency Provider Emergency Medicine Emergency Medical Services; Visit Provider Student in an Organized Health Care Education/Training Program | DX: Z86.718 Personal history of other venous thrombosis and embolism (principal) | CPT/HCPCS: 93971 ==

== ENCOUNTER → 2025-08-17 10:46 | Outpatient (BNV) | payer OTHER, SELFPAY | PROVIDERS: Admitting Provider Nurse Practitioner Psychiatric/Mental Health; Emergency Provider Emergency Medicine Emergency Medical Services; Visit Provider Psychiatry & Neurology Psychiatry | DX: F33.2 Major depressive disorder, recurrent severe without psychotic features (principal); F43.10 Post-traumatic stress disorder, unspecified; F10.20 Alcohol dependence, uncomplicated; F10.939 Alcohol use, unspecified with withdrawal, unspecified; F14.10 Cocaine abuse, uncomplicated; F11.90 Opioid use, unspecified, uncomplicated; Z59.00 Homelessness unspecified | CPT/HCPCS: 99232; 99499 ==

== ENCOUNTER → 2025-08-17 10:46 | Outpatient (BNV) | payer MEDICAID, SELFPAY | PROVIDERS: Admitting Provider Nurse Practitioner Psychiatric/Mental Health; Emergency Provider Emergency Medicine Emergency Medical Services; Visit Provider Nurse Practitioner Family | DX: S42.301A Unspecified fracture of shaft of humerus, right arm, initial encounter for closed fracture (principal) | CPT/HCPCS: 99221; 99231 ==